=== PATIENT | female | born 1940 | race Caucasian/White ===

== ENCOUNTER 2016-10-16 01:08 | Emergency (ER) | payer OTHER ==
--- NOTE | 2016-10-16 01:59 | PROVIDER DOCUMENTATION ---
HPI-General Adult - General Source: patient - History of Present Illness -Gen Adult Nature of Presenting Problems: 76 y/o WF presents to the ED with high blood pressure. Pt states her top number was over 200 at home. Location of Pain/Injury: reports: none Pain Radiation: reports: no radiation Quality of Pain: reports: none Onset/Duration: reports: unsure Timing: reports: still present Similar Symptoms Previously?: No Recently seen or treated by another doctor?: No <Darin Lara - Last Filed: 10/16/16 01:59> - History of Present Illness -Gen Adult Nature of Presenting Problems: elevated blood pressure readings Location of Pain/Injury: reports: none Pain Radiation: reports: no radiation <Bhavesh Bray - Last Filed: 10/16/16 04:30> - General Chief Complaint: B/P Problems Stated Complaint: HIGH BLOOD PRESSURE Time Seen by Provider: 10/16/16 01:45 Allergies/Adverse Reactions: Patient Allergies Allergy/AdvReac Type Severity Reaction Status Date / Time No Known Allergies Allergy Verified 10/16/16 01:41 Home Medications: Aspirin EC 81 mg PO DAILY 10/16/16 Cyanocobalamin (Vitamin B-12) [Vitamin B12] 10/16/16 Esomeprazole [Nexium] 40 mg PO QAM 10/16/16 Lisinopril 20 mg PO QAM 10/16/16 Metoprolol [Lopressor] 50 mg PO BID 10/16/16 Grundy-3S/Dha/Epa/Fish Oil [Grundy-3 Fish Oil 1,000 mg Sfgl] 10/16/16 SIMVAstatin [Zocor] 40 mg PO QHS 10/16/16 Tramadol HCl 50 mg PO Q8H 10/16/16 Zolpidem Tartrate 10 mg PO QHS PRN 10/16/16 Review of Systems - Adult - REVIEW OF SYSTEMS - ADULT Constitutional: denies: chills, fever Eyes: reports: no symptoms reported Ears, Nose, Mouth & Throat: reports: no symptoms reported Cardiovascular: denies: chest pain, edema Respiratory: denies: cough, shortness of breath, wheezing Gastrointestinal: denies: abdominal pain, diarrhea, nausea, vomiting Genitourinary: reports: no symptoms reported Musculoskeletal: reports: no symptoms reported Integumentary: reports: no symptoms reported Neurological: denies: ataxia, dizziness/vertigo, headache/migraines, seizure, slurred speech, syncope Psychiatric: reports: no symptoms reported Endocrine: reports: no symptoms reported Hematologic/Lymphatic: reports: no symptoms reported Allergic/Immunologic: reports: no symptoms reported All Other Systems: Reviewed and Negative <Darin Lara - Last Filed: 10/16/16 01:59> Past History - Adult - PAST MEDICAL HISTORY-ADULT Review of Records: reports: Old Records Reviewed, Nursing Assessment Review, Medications Reviewed - SOCIAL HISTORY Smoking: cigarettes, less than 1 pack/day Living Situation: family <Darin Lara - Last Filed: 10/16/16 01:59> Physical Exam-General - PHYSICAL EXAM-ADULT Initial Vital Signs Reviewed: Yes - CONSTITUTIONAL General Appearance: appears well, alert, no apparent distress - EYES Eyes: PERRL/EOMI, pink conjunctivae - HEAD, EARS, NOSE, MOUTH & THROAT HENMT: moist mucous membranes, normal ENT inspection, TMs normal, pharynx normal - NECK Neck: non-tender, full range of motion, supple, normal inspection - RESPIRATORY Respiratory: lungs clear, normal breath sounds, no pleuratic chest pain, no respiratory distress, no accessory muscle use - CARDIOVASCULAR Cardiovascular: normal peripheral pulses, regular rate, rhythm - GASTROINTESTINAL (ABDOMEN) Abdominal Exam: normal bowel sounds, non tender, soft - MUSCULOSKELETAL Back Exam: normal inspection, no CVA tenderness, no vertebral tenderness Extremity: normal range of motion, non-tender, normal gait, normal inspection - SKIN Integumentary: normal color, normal turgor, warm/dry - NEUROLOGIC Neurologic: grossly normal, no motor/sensory deficits - PSYCHIATRIC Psych/Mental Status: normal mood/affect, normal thought content, normal thought process, oriented x 3 <Darin Lara - Last Filed: 10/16/16 01:59> Progress - PLAN OF CARE/RESULTS Progress/Plan/Lab Results: Laboratory Tests 10/16/16 10/16/16 10/16/16 02:00 02:00 02:00 WBC 7.01 RBC 4.37 Hgb 14.7 Hct 43.0 MCV 98.4 MCH 33.6 H MCHC 34.2 RDW Std Deviation 12.0 Plt Count 177 MPV 11.0 H Immature Gran % (Auto) 0.0 Neut % (Auto) 57.9 Lymph % (Auto) 30.2 Steele % (Auto) 8.0 Eos % (Auto) 3.3 Baso % (Auto) 0.6 Immature Gran # (Auto) 0.00 Neut # (Auto) 4.06 Lymph # (Auto) 2.12 Steele # (Auto) 0.56 Eos # (Auto) 0.23 Baso # (Auto) 0.04 Sodium 137 Potassium 4.1 Chloride 100 Carbon Dioxide 26 Anion Gap 11 BUN 12 Creatinine 0.8 Estimated GFR/1.73 m2 > 60 BUN/Creatinine Ratio 15 Glucose 116 H Calculated Osmolality 275 Calcium 9.6 Total Bilirubin 0.70 AST 17 ALT 10 Alkaline Phosphatase 132 H Creatine Kinase 40 Troponin T < 0.010 Total Protein 7.1 Albumin 4.1 Globulin 3.0 Albumin/Globulin Ratio 1.0 Laboratory Tests 10/16/16 10/16/16 10/16/16 02:00 02:00 02:00 WBC 7.01 RBC 4.37 Hgb 14.7 Hct 43.0 MCV 98.4 MCH 33.6 H MCHC 34.2 RDW Std Deviation 12.0 Plt Count 177 MPV 11.0 H Immature Gran % (Auto) 0.0 Neut % (Auto) 57.9 Lymph % (Auto) 30.2 Steele % (Auto) 8.0 Eos % (Auto) 3.3 Baso % (Auto) 0.6 Immature Gran # (Auto) 0.00 Neut # (Auto) 4.06 Lymph # (Auto) 2.12 Steele # (Auto) 0.56 Eos # (Auto) 0.23 Baso # (Auto) 0.04 Sodium 137 Potassium 4.1 Chloride 100 Carbon Dioxide 26 Anion Gap 11 BUN 12 Creatinine 0.8 Estimated GFR/1.73 m2 > 60 BUN/Creatinine Ratio 15 Glucose 116 H Calculated Osmolality 275 Calcium 9.6 Total Bilirubin 0.70 AST 17 ALT 10 Alkaline Phosphatase 132 H Creatine Kinase 40 Troponin T < 0.010 Total Protein 7.1 Albumin 4.1 Globulin 3.0 Albumin/Globulin Ratio 1.0 - EKG 1 Time of EKG reading by physician:: 04:28 EKG Read and Signed by:: Bhavesh Bray EKG Interpretation (*Must complete 3 of following elements*): Normal Rate: 52 Rhythm: sinus bradycardia Bath: normal QRS: normal - XRAY 1 XRAY Study: Chest Impression: Normal Comparison with other Films: no changes <Bhavesh Bray - Last Filed: 10/16/16 04:30> Departure <Darin Lara - Last Filed: 10/16/16 01:59> - Departure Time of Disposition Order: 04:29 Certified Medical Emergency: Emergent <Bhavesh Bray - Last Filed: 10/16/16 04:30> - Departure DIAGNOSIS: HBP (high blood pressure) Qualifiers: Hypertension type: essential hypertension Qualified Code(s): I10 - Essential ( primary) hypertension Disposition: HOME 01 Condition: Good Additional Instructions: ED Follow Up Instructions: You have been treated by a care provider in the Emergency Department. These instructions are being provided to you so you can have an understanding of how to care for yourself upon discharge. Upon discharge from the Emergency Department, you are responsible for making arrangements for follow-up care by a physician of your choice. Take all prescribed medications as directed. Return to the Emergency Department immediately for any new or worsening symptoms. You may call the Physician Referral phone number at [phone] to obtain a list of Physicians who are taking new patients. Prescriptions: Clonidine [Catapres] 0.1 mg PO HS #30 tablet Referrals: Bhavesh Romano MD [Primary Care Provider] - Attestation - Scribe Verification/Attestation Scribe:: Darin Lara Acting as Scribe for:: Bhavesh Bray Scribe documention review:: This chart was documented by a scribe and accurately reflects the service the provider performed and the decisions made by the provider. <Darin Lara - Last Filed: 10/16/16 01:59> Physician Attestation
[2016-10-16 02:17] LABS: MANUAL DIFF NEEDED? NO
[2016-10-16] MEDS ORDERED: CATAPRES PO ONE (02:25)
[2016-10-16 02:30] LABS: BASO% 0.6 % (0.0-0.8); EOS# 0.23 X1000 (0.0-0.7); EOS% 3.3 % (0.0-10.0); HEMOGLOBIN 14.7 g/dL (12.0-16.0); LYMPH# 2.12 X1000 (1.2-3.4); LYMPH% 30.2 % (20.5-51.1); MCH 33.6 PG (27-31); MCHC 34.2 g/dL (33-37); MCV 98.4 FL (81-99); MONO# 0.56 X1000 (0.11-0.59); NEUT% 57.9 % (42.2-75.2); PLT 177 X1000 (130-400); RBC 4.37 XMIL (4.2-5.4)
[2016-10-16 03:06] LABS: AGAP 11; ALBUMIN 4.1 g/dL (3.5-5.0); ALKALINE PHOSPHATASE 132 U/L (32-104); BUN 12 mg/dL (8-22); CALCIUM 9.6 mg/dL (8.8-10.2); CHLORIDE 100 mmol/L (98-107); CK PROFILE 40 U/L (24-173); COSMO 275; GOT 17 U/L (10-30); GPT 10 U/L (10-36); POTASSIUM 4.1 mmol/L (3.5-5.1); SODIUM 137 mmol/L (136-145); TCO2 26 mmol/L (25-35); TOTAL PROTEIN 7.1 g/dL (6.3-8.3)
[2016-10-16 04:33] VITALS: BP 118/69
--- NOTE | 2016-10-16 06:43 | EKG Report ---
Test Performed on : 10/16/2016 04:23:04 AM Test Reason : elevated bp Blood Pressure : / mmHG Vent. Rate : 052 BPM Atrial Rate : 052 BPM P-R Int : 150 ms QRS Dur : 080 ms QT Int : 478 ms P-R-T Axes : 039 000 038 degrees QTc Int : 444 ms Sinus bradycardia. Otherwise normal ECG When compared with ECG of 16-OCT-2016 04:22, (Unconfirmed) No significant change was found Unconfirmed Result
--- NOTE | 2016-10-16 09:50 | Diag Imaging Result Document ---
PROCEDURE NAME: CHEST-2 VIEWS - 10/16/2016 PA AND LATERAL RADIOGRAPHS OF THE CHEST: COMPARISON: 02/13/2016. FINDINGS: The lungs appear hyperinflated, stable. Mild blunting of the costophrenic angles is stable suggesting pleural scarring. The lungs are clear otherwise. Cardiac silhouette and central vasculature are unremarkable. IMPRESSION: Stable COPD changes. No definite acute pathology.
== END 2016-10-16 04:42 | disposition home or self-care (01) ==
LOC: P.ED 01:08
DX: I10 Essential (primary) hypertension (principal); F17.210 Nicotine dependence, cigarettes, uncomplicated; Z79.82 Long term (current) use of aspirin; Z79.899 Other long term (current) drug therapy; Z71.6 Tobacco abuse counseling
CPT/HCPCS: 71020; 80053; 82550; 84484; 85025; 93005; 99284

== ENCOUNTER 2019-03-09 21:14 | Inpatient (IN) ==
[2019-03-09] MEDS ORDERED: DUONEB (A & A) INH ONE (22:15)
[2019-03-09 22:40] LABS: BASO# 0.02 X1000 (0.0-0.2); BASO% 0.1 % (0.0-0.8); EOS# 0.12 X1000 (0.0-0.7); EOS% 0.6 % (0.0-10.0); HEMATOCRIT 42.8 % (37.0-47.0); HEMOGLOBIN 15.2 g/dL (12.0-16.0); IMM GRAN# 0.03 X1000 (0.0-0.04); IMM GRAN% 0.1 % (0.0-0.5); LYMPH# 0.33 X1000 (1.2-3.4); LYMPH% 1.6 % (20.5-51.1); MCH 34.1 PG (27-31); MCHC 35.5 g/dL (33-37); MONO% 2.5 % (1.7-9.3); MPV 10.7 FL (7.4-10.4); NEUT% 95.1 % (42.2-75.2); PLT 184 X1000 (130-400); RBC 4.46 XMIL (4.2-5.4); RDW 12.2 % (11.5-14.5)
[2019-03-09 22:54] LABS: AGAP 15; BUN 16 mg/dL (8-22); CALCIUM 9.1 mg/dL (8.8-10.2); CHLORIDE 95 mmol/L (98-107); COSMO 267; CREATININE 0.7 mg/dL (0.5-0.9); ESTIMATED GFR > 60; GLUCOSE 163 mg/dL (70-104); SODIUM 131 mmol/L (136-145); TCO2 21 mmol/L (25-35)
[2019-03-09] MEDS ORDERED: LASIX IV ONE (23:34)
[2019-03-09] MEDS ORDERED: LEVAQUIN 500 MG/D5W 500 MG/100 ML IVPB IV ONE (23:39)
[2019-03-10] LABS: URINE SOURCE CLEAN CATCH
[2019-03-10 00:04] LABS: BILIRUBIN URINE NEGATIVE (NEGATIVE); BLOOD URINE SMALL (NEGATIVE); COLOR YELLOW; GLUCOSE URINE TRACE mg/dL (NEGATIVE); KETONE URINE NEGATIVE (NEGATIVE); LEUKOCYTES URINE NEGATIVE (NEGATIVE); NITRITE URINE NEGATIVE (NEGATIVE); PH URINE 7.5; PROTEIN URINE 300 mg/dL (NEGATIVE); SP GRAVITY URINE 1.002; TURBIDITY URINE CLEAR (CLEAR); UROBILINOGEN URINE NORMAL (NORMAL)
[2019-03-10 00:05] LABS: UR EPITHELIAL CELLS <10 /HPF (<10); URINE BACTERIA NEGATIVE /HPF; URINE WBC <10 /HPF (<10)
--- NOTE | 2019-03-10 00:05 | PROVIDER DOCUMENTATION ---
This chart was entered by Lisa Mckeon Scribe, acting as scribe for Michelle Flynn MD. HPI-Respiratory General - General Chief Complaint: Shortness of Breath Stated Complaint: SOB Time Seen by Provider: 03/09/19 22:15 Source: patient, family, EMS Allergies/Adverse Reactions: Patient Allergies Allergy/AdvReac Type Severity Reaction Status Date / Time No Known Allergies Allergy Verified 10/16/16 01:41 Home Medications: Home Medication List Medication Instructions Recorded Confirmed Last Taken Type Aspirin EC 81 mg PO DAILY 10/16/16 10/16/16 1 Day Ago History ~10/15/16 Clonidine [Catapres] 0.1 mg PO HS #30 tablet 10/16/16 Unknown Rx Cyanocobalamin (Vitamin B-12) 10/16/16 1 Day Ago History [Vitamin B12] ~10/15/16 Esomeprazole [Nexium] 40 mg PO QAM 10/16/16 10/16/16 1 Day Ago History ~10/15/16 Lisinopril 20 mg PO QAM 10/16/16 10/16/16 1 Day Ago History ~10/15/16 Metoprolol [Lopressor] 50 mg PO BID 10/16/16 10/16/16 1 Day Ago History ~10/15/16 Haz[place]-3S/Dha/Epa/Fish Oil [[place]-3 10/16/16 1 Day Ago History Fish Oil 1,000 mg Sfgl] ~10/15/16 SIMVAstatin [Zocor] 40 mg PO QHS 10/16/16 10/16/16 1 Day Ago History ~10/15/16 Tramadol HCl 50 mg PO Q8H 10/16/16 10/16/16 1 Day Ago History ~10/15/16 Zolpidem Tartrate 10 mg PO QHS PRN 10/16/16 10/16/16 1 Day Ago History ~10/15/16 - History of Present Illness-Resp Nature of Presenting Problem: 78 yo f presents w/family at bedside w/cc sob, wheezing, runny nose and cough. pt sts she became sob this am after waking up. pt used her albuterol w/no relief. pt arrived via ems, ems sts pt was wheezing and was treated with 2 duonebs. family sts pt didn't call until later in day and they encouraged her to call ems. pt has hx of copd, htn and emphysema. denies cp and fever. pt smokes 1/2 ppd, understands she needs to quit. Review of Systems - Adult - REVIEW OF SYSTEMS - ADULT Constitutional: reports: no symptoms reported. denies: chills, fever, fatique Eyes: reports: no symptoms reported Ears, Nose, Mouth & Throat: reports: see HPI, sinus problem (runny nose). denies: epistaxis, hoarseness, throat pain Cardiovascular: reports: no symptoms reported Respiratory: reports: see HPI, cough, shortness of breath, wheezing. denies: hemoptysis, pleurisy Gastrointestinal: reports: no symptoms reported Genitourinary: reports: no symptoms reported Musculoskeletal: reports: no symptoms reported Integumentary: reports: no symptoms reported Neurological: reports: no symptoms reported Psychiatric: reports: no symptoms reported Endocrine: reports: no symptoms reported Hematologic/Lymphatic: reports: no symptoms reported Allergic/Immunologic: reports: no symptoms reported All Other Systems: Reviewed and Negative Past History - Adult - PAST MEDICAL HISTORY-ADULT Review of Records: reports: Old Records Reviewed, Nursing Assessment Review, Medications Reviewed, Social history reviewed & non-contributory. Major Childhood Illnesses: reports: denies history Cardiovascular: reports: HTN, hyperlipidemia Respiratory: reports: COPD Gastrointestinal: reports: diverticulosis, GERD Obstetrical/Gynecological: reports: denies history Genitourinary: reports: denies history Musculoskeletal: reports: denies history Neurological: reports: denies history Psychiatric: reports: depression Endocrine/Immune: reports: denies history Other Conditions: reports: denies history - PRIOR SURGERIES/PROCEDURES Surgical/Procedure History: reports: other - IMMUNIZATION STATUS Childhood Immunizations: See Nurse Assessment Flu Vaccine: See Nurse Assessment - FAMILY HISTORY Family History: reviewed, not pertinent - SOCIAL HISTORY Smoking: cigarettes, less than 1 pack/day Provider spent 3-5 mins advising pt. on dangers of tobacco.: Discussed manners to quit use, and f/u contacts for add'l counseling. Substance Use: none/never Physical Exam-General - PHYSICAL EXAM-ADULT Initial Vital Signs Reviewed: Yes - CONSTITUTIONAL General Appearance: appears well, alert, no apparent distress - EYES Eyes: PERRL/EOMI, pink conjunctivae - HEAD, EARS, NOSE, MOUTH & THROAT HENMT: normocephalic/atraumatic, moist mucous membranes, normal ENT inspection, TMs normal, pharynx normal. negative: angioedema, frontal tenderness, maxillary tenderness - NECK Neck: non-tender, full range of motion, supple, normal inspection - RESPIRATORY Respiratory: chest non-tender, normal breath sounds, no pleuratic chest pain, no respiratory distress, no accessory muscle use, wheezing (minimal bilat wheezing). negative: lungs clear, respiratory distress, decreased breath sounds, crackles - CARDIOVASCULAR Cardiovascular: normal peripheral pulses, regular rate, rhythm - GASTROINTESTINAL (ABDOMEN) Abdominal Exam: normal bowel sounds, non tender, soft - LYMPHATIC Lymphatic: no adenopathy - MUSCULOSKELETAL Back Exam: normal inspection, no CVA tenderness, no vertebral tenderness Extremity: normal range of motion, non-tender, normal inspection, no pedal edema , no calf tenderness, normal capillary refill. negative: pedal edema, slow capillary refill, swelling Peripheral Pulses: radial (R): 2+, radial (L): 2+ - SKIN Integumentary: normal color, normal turgor, warm/dry - NEUROLOGIC Neurologic: rn surgery II-XII nml as tested, grossly normal, no motor/sensory deficits - PSYCHIATRIC Psych/Mental Status: normal mood/affect, normal thought content, normal thought process, oriented x 3 Progress - PLAN OF CARE/RESULTS Progress/Plan/Lab Results: Vital Signs - 8 hr 03/09/19 21:25 03/09/19 21:37 03/09/19 22:01 Temperature 98.1 F Pulse Rate 101 H 98 H 96 H Respiratory Rate 37 H 33 H 24 Blood Pressure 197/124 190/115 148/82 O2 Sat by Pulse Oximetry 100 96 95 03/09/19 22:31 03/09/19 22:59 03/09/19 23:01 Temperature Pulse Rate 81 86 78 Respiratory Rate 24 24 26 H Blood Pressure 123/74 116/72 O2 Sat by Pulse Oximetry 96 93 L 96 Laboratory Results - last 24 hr 03/09/19 03/09/19 03/09/19 21:53 21:53 21:53 WBC 20.20 H RBC 4.46 Hgb 15.2 Hct 42.8 MCV 96.0 MCH 34.1 H MCHC 35.5 RDW Std Deviation 12.2 Plt Count 184 MPV 10.7 H Immature Gran % (Auto) 0.1 Neut % (Auto) 95.1 H Lymph % (Auto) 1.6 L Caroline % (Auto) 2.5 Eos % (Auto) 0.6 Baso % (Auto) 0.1 Immature Gran # (Auto) 0.03 Neut # (Auto) 19.20 H Lymph # (Auto) 0.33 L Caroline # (Auto) 0.50 Eos # (Auto) 0.12 Baso # (Auto) 0.02 Sodium 131 L Potassium 4.0 Chloride 95 L Carbon Dioxide 21 L Anion Gap 15 BUN 16 Creatinine 0.7 Estimated GFR/1.73 m2 > 60 BUN/Creatinine Ratio 23 Glucose 163 H Calculated Osmolality 267 Calcium 9.1 Troponin T [id number] Pept 1064 H 03/09/19 21:53 WBC RBC Hgb Hct MCV MCH MCHC RDW Std Deviation Plt Count MPV Immature Gran % (Auto) Neut % (Auto) Lymph % (Auto) Caroline % (Auto) Eos % (Auto) Baso % (Auto) Immature Gran # (Auto) Neut # (Auto) Lymph # (Auto) Caroline # (Auto) Eos # (Auto) Baso # (Auto) Sodium Potassium Chloride Carbon Dioxide Anion Gap BUN Creatinine Estimated GFR/1.73 m2 BUN/Creatinine Ratio Glucose Calculated Osmolality Calcium Troponin T 0.073 Kly-J-Eucobqauyjo Pept Orders Category Date Time Status IV Insertion ORDERED Care 03/09/19 22:15 Completed cxr [CHEST-1 VIEW] [RAD] Stat Exams 03/09/19 22:15 Taken BASIC METABOLIC PANEL [CHEM] Stat Lab 03/09/19 21:53 Completed BLOOD CULTURE [BLDCUL] Stat Lab 03/09/19 21:53 Ordered CBC WITH DIFF [HEME] Stat Lab 03/09/19 21:53 Completed LACTATE, PLASMA [CHEM] Stat Lab 03/09/19 23:17 Uncollected PRO B-NATRIURETIC PEPTIDE Stat Lab 03/09/19 21:53 Completed TROPONIN T Stat Lab 03/09/19 21:53 Completed UA [URINALYSIS W/POSS RFLX CULT] [URINALYSIS] Stat Lab 03/09/19 23:39 Uncollected Albuterol 2.5MG/Ipratrop 0.5MG [Duoneb (A & A)] Med 03/09/19 22:15 Discontinued 3 ml INH NOW ONE Furosemide [Lasix] Med 03/09/19 23:34 Discontinued 20 mg IV NOW ONE Levofloxacin 500 mg/D5w [Levaquin 500 mg/D5w] Med 03/09/19 23:39 Active 500 mg in 100 ml IV NOW Aerosol Treatments Routine Oth 03/09/19 22:16 Completed Aerosol Treatments Stat Oth 03/09/19 22:16 Completed EKG [EKG] Stat Ther 03/09/19 22:15 Ordered dyspnea will further evaluate for causes including but not limited to copd exacerbation, chf, acs, pna, bronchits Result Diagrams: 03/09/19 21:53 03/09/19 21:53 - REASSESSMENT Reassessment #1 Status: improving (feeling better, wheezes and dyspnea resolved, marked leukocytosis with elevated bnp, pulmonary edema but no discrete infiltrate, treated with lasix and will treat with levaquin as with leukocytosis concerning for infectious process and will admit. Discussed case wtih Dr. Davidson, Hospitalist, who will see and admit pt.) - XRAY 1 XRAY Study: Chest Impression: Abnormal (moderate pulmonary edema, no discrete infiltrate, no ptx) Departure - Departure Date of Disposition Decision: 03/10/19 Time of Disposition Decision: 00:04 DIAGNOSIS: CHF (congestive heart failure) Qualifiers: Heart failure type: unspecified Heart failure chronicity: unspecified Qualified Code(s): I50.9 - Heart failure, unspecified Leukocytosis Qualifiers: Leukocytosis type: unspecified Qualified Code(s): D72.829 - Elevated white blood cell count, unspecified Disposition: HOME 01 Certified Medical Emergency: Emergent Condition: Good Referrals and Follow-Ups: Bhavesh Romano MD [Primary Care Provider] - - Critical Care Note This patient required my direct & personal management of CC.: No Attestation - Physician/ TRUDI Attestation Patient care was provided by Advanced Practice Provider:: No The physician spent face to face time with patient:: Yes Advanced Practice Provider documentation review:: Supervising physician onsite and consulted in the evaluation and care of this patient. The physician did have a face to face encounter with the patient. This chart was documented by the indicated scribe, (Lisa Mckeon Scribe) and accurately reflects the services I performed and decisions made by me, Michelle Flynn MD, as attested by the provider's signature.
[2019-03-10] MEDS ORDERED: TYLENOL PO PRN (01:12)
[2019-03-10] MEDS ORDERED: ZOFRAN IV PRN (01:12)
[2019-03-10] MEDS ORDERED: SOLU-MEDROL IV ONE (01:20)
[2019-03-10] MEDS: LOVENOX SUBQ SCH (01:34)
[2019-03-10] MEDS: ULTRAM PO SCH ×2 (01:34→13:29)
[2019-03-10] MEDS: AMBIEN PO PRN ×2 (01:38→22:23)
[2019-03-10] MEDS ORDERED: AMBIEN ONE (01:38)
[2019-03-10] MEDS: DUONEB (A & A) INH SCH ×6 (03:08→19:30)
--- NOTE | 2019-03-10 06:25 | Diag Imaging Result Doc PS360 ---
CHEST-1 VIEW - 03/09/2019 INDICATION: dyspnea COMPARISON: 02/25/2019 FINDINGS: Stable hyperexpanded lungs compatible with COPD. No infiltrates or edema. Heart size remains top normal. IMPRESSION: COPD. Electronically signed by Elijah Hernandez 03/10/2019 6:22 AM
[2019-03-10] MEDS: PRILOSEC PO SCH (06:36)
--- NOTE | 2019-03-10 06:36 | HISTORY AND PHYSICAL ---
CHIEF COMPLAINT: Shortness of breath. HISTORY OF PRESENT ILLNESS: This is a 78-year-old female who was having a runny nose and cough for the last couple of days had increased shortness of breath. She has a history of emphysema. She smokes between 5-12 cigarettes per day. She has been told before that she needs to quit. She states that she was no longer going to smoke after this episode. She sees Dr. Romano outpatient. She also has a history of hypertension, hyperlipidemia and COPD. Laboratory data was obtained that showed an elevated white blood cell count. She was started on antibiotics in the emergency room. She will be admitted for further evaluation and treatment. PAST MEDICAL HISTORY: See HPI. PREVIOUS SURGICAL HISTORY: Sinus surgery and bilateral tubal ligation. SOCIAL HISTORY: Lives alone. No alcohol or illicit drugs. Has been smoking from 5 to 12 cigarettes per day. She was a 1/2 pack per smoker for many years. FAMILY HISTORY: Father had kidney cancer. Mother had diabetes mellitus. Both are . ALLERGIES: No known drug allergies. HOME MEDICATIONS: 1. Nexium 40 mg p.o. daily. 2. Aspirin 81 mg p.o. daily. 3. Tramadol 50 mg p.o. daily. 4. Lisinopril 20 mg p.o. daily. 5. [place]-3 fish oil 1000 mg p.o. daily. 6. Pravastatin 40 mg p.o. daily. 7. Carvedilol 12.5 mg p.o. b.i.d. 8. Ambien 10 mg p.o. at bedtime p.r.n. 9. Albuterol inhalation q.4 p.r.n. 10.Cymbalta 30 mg p.o. daily. REVIEW OF SYSTEMS: Fourteen point review of systems conducted with the patient. Pertinent positives as listed above in the HPI. All other systems reviewed and found to be negative. PHYSICAL EXAMINATION: VITAL SIGNS: Temperature 98.1, pulse78, respirations 26, blood pressure 116/72, oxygen saturation 96% on 3 L nasal cannula. GENERAL: A pleasant 78-year-old female alert and oriented x3. She is in moderate respiratory distress in the emergency room. Answers all questions appropriately. Family at bedside. HEENT: Head is atraumatic, normocephalic. Pupils equal, round and react to light. Extraocular eye movements intact. Sclerae are nonicteric. Conjunctivae are pink. Oral mucosa is moist. Patient is hard of hearing. NECK: Trachea is midline. No cervical lymphadenopathy. CARDIAC: S1, S2 appreciated. No murmurs, gallops or rubs. LUNGS: Expiratory wheezing. Prolonged expiratory phase. Mild crepitations noted throughout the air morrison. No rhonchi. Symmetric rise and fall with respirations. ABDOMEN: Soft, nondistended, nontender. Bowel sounds present in all 4 quadrants. Normoactive. No pulsatile masses. No organomegaly. EXTREMITIES: No cyanosis, clubbing or edema. Calves are nontender. GENITOURINARY: No bladder distention. The patient voids. Otherwise deferred. NEUROLOGICAL: Alert and oriented x3. The patient is hard of hearing, otherwise cranial nerves 2- 12 appear to be grossly intact. DIAGNOSTIC DATA: A chest x-ray shows mildly increased pulmonary vascular congestion. Pulmonary arteriogram ruled out pulmonary embolism. LABORATORY DATA: WBC 20.20, hemoglobin 15.2, hematocrit 42.8, platelet count 187,000. D-dimer 7.30. Sodium 131, potassium 4, chloride 95, carbon dioxide 21, BUN 16, creatinine 0.7, glucose 163. Urine unremarkable. ASSESSMENT AND PLAN: 1. Chronic obstructive pulmonary disease with exacerbation. This is likely related to an upper respiratory infection. Will continue Levaquin that was started in the emergency room. Blood cultures are pending. The patient had an elevated D-dimer, but CT angiogram ruled out pulmonary embolism. 2. Hypertension. Continue home medications. 3. Hyperlipidemia. Continue statin. 4. Hyperglycemia. Patient does not carry a diagnosis of diabetes mellitus. Check hemoglobin A1c. 5. Elevated D-dimer. Pulmonary embolism was ruled out. Will check a bilateral lower extremity ultrasound to rule out deep vein thrombosis. 6. Tobacco abuse. Smoking cessation was gone over with the patient. She states that she is no longer going to smoke. Further recommendations as per the patient's clinical course. Dictated by CHRISTIAN Diaz for Jasper Davidson MD cc: CHRISTIAN Diaz MD Michael C. Donham, MD
--- NOTE | 2019-03-10 07:06 | Diag Imaging Result Doc PS360 ---
EXAM: CT ANGIOGRM PULMONARY ARTERIES 03/10/2019 HISTORY: D-DIMER TECHNIQUE: This exam was performed using automated exposure control, adjustment of mA or kV according to patient size, and/or use of iterative reconstruction technique. COMMENT: 3-D MIPS were performed. The current examination is compared with the previous study of 05/22/2017. There are no filling defects in the pulmonary arteries. The thoracic aorta is not distended and there is no evidence of dissection. There are coronary calcifications. Some calcified and noncalcified plaque is present in the descending aorta. There is a small hiatal hernia. There is no evidence of significant adenopathy. No abnormal fluid collections are present. The regional skeleton is stable in appearance. There is some pleural fibrosis in the apices. There is mild peribronchial thickening. This is not changed appreciably since the previous study. There are some calcified granulomata. There are some linear fibrotic scars in the left lower lobe. Overall, there has been no significant change since the previous study. IMPRESSION: Stable CT of the chest. No evidence of pulmonary emboli. Electronically signed by Derrick Sheets 03/10/2019 7:04 AM
--- NOTE | 2019-03-10 07:39 | EKG Report ---
Test Performed on : 03/10/2019 05:02:11 AM Test Reason : dyspnea Blood Pressure : / mmHG Vent. Rate : 077 BPM Atrial Rate : 077 BPM P-R Int : 148 ms QRS Dur : 080 ms QT Int : 430 ms P-R-T Axes : 076 -41 039 degrees QTc Int : 486 ms Normal sinus rhythm. Left axis deviation Abnormal ECG When compared with ECG of 16-OCT-2016 04:23, Vent. rate has increased BY 25 BPM Unconfirmed Result
[2019-03-10] MEDS: FISH OIL CONCENTRATE PO SCH (09:47)
[2019-03-10] MEDS: CYMBALTA PO SCH (09:47)
[2019-03-10] MEDS: PRINIVIL PO SCH (09:47)
[2019-03-10] MEDS: COREG PO SCH ×2 (09:47→20:22)
[2019-03-10] MEDS: ASPIRIN EC PO SCH (09:47)
[2019-03-10] MEDS: NICODERM PATCH TD SCH (09:47)
[2019-03-10] MEDS: SOLU-MEDROL IV SCH ×2 (11:25→22:23)
[2019-03-10] MEDS: SYMBICORT 80/4.5 MICROGM INHALER INH SCH ×2 (11:29→19:30)
--- NOTE | 2019-03-10 11:30 | EKG Report ---
Test Performed on : 03/10/2019 08:58:14 AM Test Reason : ED. No order in [place] Blood Pressure : / mmHG Vent. Rate : 077 BPM Atrial Rate : 077 BPM P-R Int : 142 ms QRS Dur : 080 ms QT Int : 424 ms P-R-T Axes : 083 -23 040 degrees QTc Int : 479 ms Normal sinus rhythm. Normal ECG When compared with ECG of 10-MAR-2019 05:02, (Unconfirmed) No significant change was found Unconfirmed Result
[2019-03-10] MEDS: ZOCOR PO SCH (20:22)
[2019-03-10] MEDS: LEVAQUIN 500 MG/D5W 500 MG/100 ML IVPB IV SCH (22:23)
[2019-03-11] MEDS: DUONEB (A & A) INH SCH ×7 (00:48→23:30)
[2019-03-11] MEDS ORDERED: VANCOMYCIN IV PER PHARMACY MISC SCH (03:00)
[2019-03-11] MEDS ORDERED: VANCOMYCIN 1,500 MG in NS 250 ML IV ONE (04:00)
[2019-03-11] MEDS: PRILOSEC PO SCH ×2 (05:11→06:16)
[2019-03-11 05:47] LABS: HEMATOCRIT 37.7 % (37.0-47.0); HEMOGLOBIN 13.1 g/dL (12.0-16.0); IMM GRAN# 0.06 X1000 (0.0-0.04); IMM GRAN% 0.3 % (0.0-0.5); LYMPH# 0.64 X1000 (1.2-3.4); LYMPH% 3.6 % (20.5-51.1); MCH 33.4 PG (27-31); MCHC 34.7 g/dL (33-37); MCV 96.2 FL (81-99); MONO# 0.45 X1000 (0.11-0.59); MONO% 2.5 % (1.7-9.3); MPV 10.7 FL (7.4-10.4); NEUT# 16.73 X1000 (1.4-6.5); NEUT% 93.6 % (42.2-75.2); PLT 163 X1000 (130-400); RBC 3.92 XMIL (4.2-5.4); RDW 12.3 % (11.5-14.5); WBC 17.88 X1000 (4.8-10.8)
[2019-03-11 06:13] LABS: CALCIUM 9.1 mg/dL (8.8-10.2); POTASSIUM 3.8 mmol/L (3.5-5.1)
[2019-03-11] MEDS: SYMBICORT 80/4.5 MICROGM INHALER INH SCH ×2 (07:50→19:40)
[2019-03-11] MEDS: NICODERM PATCH TD SCH (08:25)
[2019-03-11] MEDS: FISH OIL CONCENTRATE PO SCH (08:27)
[2019-03-11] MEDS: LOVENOX SUBQ SCH (08:27)
[2019-03-11] MEDS: CYMBALTA PO SCH (08:27)
[2019-03-11] MEDS: ULTRAM PO SCH ×2 (08:28→21:22)
[2019-03-11] MEDS: ASPIRIN EC PO SCH (08:29)
[2019-03-11] MEDS: COREG PO SCH ×2 (08:29→21:20)
[2019-03-11] MEDS: PRINIVIL PO SCH (08:30)
--- NOTE | 2019-03-11 11:33 | PROGRESS NOTE ---
DATE: 03/11/2019 SUBJECTIVE: As per the patient, she is feeling better and she is breathing better. Her BUN and creatinine increased compared with yesterday, and this is probably related to the CT angiogram that she received with contrast, I will give her some IV fluids. I will hold for now the lisinopril, and I will monitor this patient closely. She is tolerating p.o. OBJECTIVE: Vital Signs: Temperature 98.3 degrees, pulse 85, respiratory rate 16, blood pressure 121/76, and oxygen saturation 98 on 2 L of nasal cannula. HEENT: Head normocephalic. No trauma. PERRLA. Neck: Supple. No JVD. No masses. Central trachea. Chest: Decreased breath sounds globally with prolonged expiratory phase and expiratory wheezing, scattered. Abdomen: Soft, nontender, and nondistended. No hepatosplenomegaly. Extremities: No edema. No clubbing. No cyanosis. Neurological: The patient is alert. She is oriented x3. No focal neurological deficits. LABORATORY: WBC 17.8, hemoglobin 13.1, hematocrit 37.7, and platelets 163,000. Sodium 129, potassium 3.8, chloride 92, bicarbonate 23, BUN 30, creatinine 1, glucose 131, and calcium 9.1. ASSESSMENT AND PLAN: 1. COPD exacerbation. She has been a heavy smoker, and she is still smoking. We had a large conversation about smoking cessation. We will continue with breathing treatment. Her wheezing is better so I will decrease the amount of the steroids from twice a day to once a day. Continue with antibiotics as well. She may have an upper respiratory infection. CT angiogram did not show any infiltrates or clots. 2. Acute kidney injury, probably related to the CT angiogram and the contrast. I will give her some IV fluids, and I will stop for now her lisinopril. Blood pressure has been stable. 3. Hypertension stable. Holding the lisinopril for now. 4. Hyperlipidemia continue with statins. 5. Hyperglycemia. This patient does not have a history of diabetes, but the blood glucose has been slightly elevated. I will ask for a hemoglobin A1c to rule out diabetes. I do believe this high blood sugar is related to steroids. 6. Hyponatremia. We will monitor for now. It looks like she has been hyponatremic before. I will give her some IV fluids. 7. Elevated D-dimer. CT angiogram has been negative for pulmonary embolism. Pending lower extremity ultrasound to rule out DVT, but she does not have any symptoms at this moment. 8. Tobacco abuse. This patient has been highly advised against tobacco use. I will continue with daily cessation education. cc: Kvng Jackson MD
[2019-03-11] MEDS: NS 1,000 ML IV SCH ×2 (11:49→23:03)
--- NOTE | 2019-03-11 20:41 | Extremity Venous Study ---
PROCEDURE NAME: Venous U/S Bilateral Legs - 03/10/2019 REQUESTING PHYSICIAN: Dr. Davidson. SALESPERSON MEATS: René. INDICATIONS: 1. Shortness of breath. 2. D-dimer. 3. CT chest. 4. Elevated D-dimer. EQUIPMENT: whoactually Vivid E9 ultrasound system and a 9 L-D transducer. FINDINGS: Images of bilateral lower extremity venous systems were obtained in both sagittal and transverse planes. Doppler was used to evaluate veins for spontaneity, phasicity, respiratory excursion and digital augmentation. RESULTS: Normal venous compression, normal venous flow, no obvious superficial or deep venous thrombosis noted. INTERPRETATION: Essentially normal bilateral lower extremity venous study. cc: MD Nick Xie CRNP
[2019-03-11] MEDS: ZOCOR PO SCH (21:20)
[2019-03-11] MEDS: LEVAQUIN 500 MG/D5W 500 MG/100 ML IVPB IV SCH (21:21)
[2019-03-11] MEDS: AMBIEN PO PRN (23:03)
[2019-03-12] MEDS: LEVAQUIN 500 MG/D5W 500 MG/100 ML IVPB IV SCH ×2 (01:40→22:28)
[2019-03-12] MEDS: DUONEB (A & A) INH SCH ×6 (03:17→23:13)
[2019-03-12 05:48] LABS: EOS# 0.17 X1000 (0.0-0.7); EOS% 1.3 % (0.0-10.0); HEMOGLOBIN 11.7 g/dL (12.0-16.0); IMM GRAN# 0.03 X1000 (0.0-0.04); IMM GRAN% 0.2 % (0.0-0.5); LYMPH# 1.12 X1000 (1.2-3.4); LYMPH% 8.8 % (20.5-51.1); MCH 33.5 PG (27-31); MCHC 34.4 g/dL (33-37); MCV 97.4 FL (81-99); MONO# 0.92 X1000 (0.11-0.59); MONO% 7.3 % (1.7-9.3); MPV 10.6 FL (7.4-10.4); NEUT# 10.44 X1000 (1.4-6.5); NEUT% 82.4 % (42.2-75.2); PLT 166 X1000 (130-400); RBC 3.49 XMIL (4.2-5.4); RDW 12.5 % (11.5-14.5); WBC 12.68 X1000 (4.8-10.8)
[2019-03-12 06:14] LABS: AGAP 13; BUN 24 mg/dL (8-22); CALCIUM 8.5 mg/dL (8.8-10.2); CHLORIDE 98 mmol/L (98-107); COSMO 270; CREATININE 0.8 mg/dL (0.5-0.9); ESTIMATED GFR > 60; GLUCOSE 96 mg/dL (70-104); POTASSIUM 3.9 mmol/L (3.5-5.1); SODIUM 133 mmol/L (136-145); TCO2 22 mmol/L (25-35)
[2019-03-12] MEDS: PRILOSEC PO SCH (06:21)
--- NOTE | 2019-03-12 07:39 | Diag Imaging Result Doc PS360 ---
CHEST-PORTABLE - 03/12/2019 INDICATION: dyspnea COMPARISON: 03/09/2019 FINDINGS: The lungs are clear. Heart size is normal. No pneumothorax or pleural effusion. IMPRESSION: Negative exam. Electronically signed by Elijah Hernandez 03/12/2019 7:36 AM
[2019-03-12] MEDS: SYMBICORT 80/4.5 MICROGM INHALER INH SCH ×2 (07:52→23:13)
[2019-03-12] MEDS: NICODERM PATCH TD SCH (08:33)
[2019-03-12] MEDS: SOLU-MEDROL IV SCH (08:33)
[2019-03-12] MEDS: COREG PO SCH ×2 (08:33→22:28)
[2019-03-12] MEDS: LOVENOX SUBQ SCH (08:33)
[2019-03-12] MEDS: FISH OIL CONCENTRATE PO SCH (08:33)
[2019-03-12] MEDS: CYMBALTA PO SCH (08:33)
[2019-03-12] MEDS: ASPIRIN EC PO SCH (08:33)
[2019-03-12] MEDS: ULTRAM PO SCH ×2 (08:34→22:27)
--- NOTE | 2019-03-12 11:05 | PROGRESS NOTE ---
DATE: 03/12/2019 SUBJECTIVE: This patient is feeling better, the kidney function is recovering. She is still having wheezing and having some shortness of breath. WBC trending down. Will continue with the same management. She is tolerating p.o. really well, so I will stop the IV fluids today, but I will continue holding the lisinopril. OBJECTIVE: Vital Signs: Temperature 98.2 degrees, pulse 78, respiratory rate 18, blood pressure 148/87, oxygen saturation 95% on 2 L of nasal cannula. HEENT: Head normocephalic. No trauma. PERRLA. Neck: Supple. No JVD. No masses. Central trachea. Chest: Decreased breath sounds globally with prolonged expiratory phase and expiratory wheezing, but scattered. Abdomen: Soft, nontender, nondistended. No hepatosplenomegaly. Extremities: No edema. No clubbing. No cyanosis. Neurological examination: The patient is alert. She is oriented x3. No focal neurological deficits. LABORATORY: WBC 12.6, hemoglobin 11.7, hematocrit 34.0, platelets 166,000. Sodium 133, potassium 3.9, chloride 98, bicarbonate 22, BUN 24, creatinine 0.8, glucose 96, calcium 9.1. ASSESSMENT AND PLAN: 1. Chronic obstructive pulmonary disease exacerbation. She has been a heavy smoker, she is still smoking actually. We had a large conversation about smoking cessation. Will continue with breathing treatment. Will continue with the same dose of steroids, likely she needs to be recharged p.o. steroids as well. Will continue with antibiotics. It looks like she has an upper respiratory infection. CT angiogram did not show any infiltrates or clots. 2. Likely bronchitis. Continue with antibiotics and breathing treatment. 3. Acute kidney injury, probably related to the CT angiogram and the contrast. I will stop the IV fluids since the kidney function is better, she is making more continue. I will continue holding the lisinopril for now. Blood pressure is stable. 4. Hypertension, stable. 5. Hyperlipidemia. Continue with statins. 6. Hyperglycemia. Her hemoglobin A1c is around 5%, likely the mild elevation of the glucose is related to steroids. 7. Hyponatremia, better compared with yesterday. Continue with the same management. 8. Elevated D-dimer. CT angiogram has been negative for pulmonary embolism, and she does have a bilateral lower extremity venous study, which is normal. 9. Tobacco abuse. This patient has been highly advised against tobacco use. I will continue with daily cessation education. Overall, this patient is doing much better. I will ask for a home O2 evaluation to see if this patient qualifies for home oxygen. If tomorrow she is doing well, she will be discharged home. cc: Kvng Jackson MD MTDD
[2019-03-12] MEDS ORDERED: VANCOMYCIN 1,200 MG in NS 250 ML IV SCH (16:00)
[2019-03-12] MEDS ORDERED: MIRALAX PO ONE (17:55)
[2019-03-12] MEDS: ZOCOR PO SCH (22:28)
[2019-03-12] MEDS: AMBIEN PO PRN (22:32)
[2019-03-13] MEDS: DUONEB (A & A) INH SCH ×3 (03:02→12:00)
[2019-03-13] MEDS: PRILOSEC PO SCH (06:45)
[2019-03-13 07:43] LABS: EOS# 0.06 X1000 (0.0-0.7); EOS% 0.6 % (0.0-10.0); HEMATOCRIT 36.1 % (37.0-47.0); HEMOGLOBIN 12.5 g/dL (12.0-16.0); IMM GRAN# 0.02 X1000 (0.0-0.04); IMM GRAN% 0.2 % (0.0-0.5); LYMPH# 1.26 X1000 (1.2-3.4); LYMPH% 13.6 % (20.5-51.1); MCH 33.5 PG (27-31); MCHC 34.6 g/dL (33-37); MCV 96.8 FL (81-99); MONO# 0.83 X1000 (0.11-0.59); MONO% 8.9 % (1.7-9.3); MPV 10.6 FL (7.4-10.4); NEUT# 7.11 X1000 (1.4-6.5); NEUT% 76.7 % (42.2-75.2); PLT 165 X1000 (130-400); RBC 3.73 XMIL (4.2-5.4); RDW 12.4 % (11.5-14.5); WBC 9.28 X1000 (4.8-10.8)
[2019-03-13] MEDS: SYMBICORT 80/4.5 MICROGM INHALER INH SCH (07:47)
[2019-03-13 08:02] LABS: AGAP 10; BUN 21 mg/dL (8-22); CALCIUM 8.6 mg/dL (8.8-10.2); CHLORIDE 96 mmol/L (98-107); COSMO 265; CREATININE 0.8 mg/dL (0.5-0.9); ESTIMATED GFR > 60; GLUCOSE 95 mg/dL (70-104); POTASSIUM 3.8 mmol/L (3.5-5.1); SODIUM 131 mmol/L (136-145); TCO2 25 mmol/L (25-35)
[2019-03-13 08:21] VITALS: BP 182/96
[2019-03-13] MEDS: SOLU-MEDROL IV SCH (09:46)
[2019-03-13] MEDS: ULTRAM PO SCH (09:47)
[2019-03-13] MEDS: CYMBALTA PO SCH (09:47)
[2019-03-13] MEDS: FISH OIL CONCENTRATE PO SCH (09:48)
[2019-03-13] MEDS: COREG PO SCH (09:48)
[2019-03-13] MEDS: ASPIRIN EC PO SCH (09:48)
[2019-03-13] MEDS: LOVENOX SUBQ SCH (09:48)
[2019-03-13] MEDS: NICODERM PATCH TD SCH (09:49)
--- NOTE | 2019-03-13 11:30 | DISCHARGE SUMMARY ---
ADMISSION DATE: 03/10/2019 DISCHARGE DATE: 03/13/2019 ADMITTING DIAGNOSES: 1. Chronic obstructive pulmonary disease exacerbation. 2. Hypertension. 3. Hyperlipidemia. 4. Hyperglycemia. 5. Elevated D-dimer. 6. Nicotine dependence. DISCHARGE DIAGNOSES: 1. Chronic obstructive pulmonary disease exacerbation. 2. Bronchitis. 3. Acute kidney injury, resolved. 4. Hypertension. 5. Hyperlipidemia. 6. Mild hyponatremia. 7. Nicotine dependence. DIAGNOSTIC PROCEDURES: Chest x-ray on 03/09/2019 shows hyperexpanded lungs, no acute process. CTA of the chest on 03/10/2019 with no PE, pleural fibrosis in the apices, mild peribronchial thickening. Extremity venous study on 03/10/2019 essentially normal bilateral lower extremity venous study. EKG on 03/10/2019 is sinus rhythm without acute ST or T abnormalities. Chest x-ray on 03/12/2019 is a negative exam. HOSPITAL COURSE: Ms. Rhoades is a 78-year-old female who came in with 3 to 4 days of increased shortness of breath, runny nose and cough. She also reports some increased wheezing and came in to the hospital for evaluation. Chest x-ray did not show anything acute. She had a mildly elevated white count, and so she was admitted for COPD exacerbation, started on standard treatment. We counseled her extensively on nicotine cessation and gave her a nicotine patch. She improved significantly. D-dimer elevation also prompted an extremity venous study which was negative. Over the next 2 days, she improved and is now stable for discharge. There was some mild renal insufficiency noted on day 3, and it was felt this was due to CT dye contrast and lisinopril use. The lisinopril was stopped for a short period, and IV fluids were given which improved her creatinine. This morning, she feels much better. She is now stable for discharge home. DISCHARGE MEDICATIONS: Nexium 40 mg p.o. a.m., aspirin 81 mg daily, tramadol 50 mg p.o. q.12 hours as needed, lisinopril 20 mg p.o. a.m., fish oil 1 daily, simvastatin 40 mg daily, Coreg 12.5 mg p.o. b.i.d., Ambien 10 mg p.o. at bedtime as needed, albuterol 8.5 g inhaled q.4 hours, Atrovent HFA 2 puffs inhaled 4 times a day, Medrol Dosepak as directed, Levaquin 500 mg p.o. daily for 3 days. DISCHARGE DIET: Heart healthy. DISCHARGE VITAL SIGNS: Blood pressure is 150/78, heart rate 71, respiratory rate 17, O2 saturation is 98% on room air, temperature is 98 degrees Fahrenheit. DISCHARGE ACTIVITY: Resume activity as tolerated. DISPOSITION AND OTHER DISCHARGE INSTRUCTIONS: The patient is discharged home with [facility] home care. She is to follow up with Dr. Robert of Pulmonary. We have done extensive nicotine cessation education and directed her toward nicotine patches over the counter if needed. She is to continue all other medications and return to the ER for worsening complaints or concerns. Discharge time is greater than 35 minutes. Dictated by CHRISTIAN Sifuentes for Kvng Jackson MD cc: CHRISTIAN Sifuentes MD Mamoun I. Najjar, MD Michael C. Donham, MD
== END 2019-03-13 12:42 | disposition home health service (06) | DRG 191 ==
LOC: ED 21:14 → SUATTDRO 03-10 01:48 → EDIPHOLD 03-10 01:48 → 3S 03-10 10:19 → 3N 03-12 12:11
PROVIDERS: ATTEND Internal Medicine
CPT/HCPCS: 71010; 71045; 71275; 80048; 81001; 83036; 83605; 83735; 83880; 84484; 85025; 85379; 87040; 93005; 93970; 94640; 94761; 94799; 96365; 96372; 96375; 97116; 97161; 99285; A9270; J1650; J1940; J1956; J2920; J2930; J3370; J7030; J7040; Q9967

== ENCOUNTER 2019-11-03 00:57 | Inpatient (IN) ==
[2019-11-03 01:53] LABS: URINE SOURCE CATH
[2019-11-03 01:58] LABS: UR EPITHELIAL CELLS <10 /HPF (<10); URINE BACTERIA NEGATIVE /HPF; URINE RBC 20-40 /HPF (<10); URINE WBC <10 /HPF (<10)
--- NOTE | 2019-11-03 02:00 | PROVIDER DOCUMENTATION ---
This chart was entered by Lisa Mckeon Scribe, acting as scribe for Christina Mclaughlin MD. HPI-Musculoskeletal Pain/Inj - GENERAL Stated Complaint: FALL RIGHT HIP AND WRIST Time Seen by Provider: 11/03/19 01:00 Source: patient - HX OF PRESENT ILLNESS-MUSKULOSKELTAL Nature of Presenting Problem: PT IS AN 79YOWF C/O RT HIP AND RT ARM AND WRIST PAIN RELATED TO FALL SOMETIME THURSDAY NIGHT. PT STS SHE WAS GOING TO TURN OF TV AND FELL, LAID IN FLOOR AND URINATED SELF. PT LIVES ALONE. PT IS ORIENTED TO SELF, PLACE AND KNOWS SHE FELL DAY AFTER YEST. SMELLS OF URINE IN ROOM. 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 PT PCP IS DR. HAYNES Severity in ED: moderate Onset/Duration: 3 days ago Timing: still present Modifying Factors: improves with: nothing Locality of Occurance: Home - FALL INJURY Location of Pain/Injury: reports: upper extremity (RT WRIST AND ARM), lower extremity (RT HIP) Pain Radiation: reports: no radiation Reason for Fall: reports: lost balance Symptoms prior to fall:: reports: none Loss of Consciousness: no loss of consciousness Injury Associated Symptoms: reports: arm pain (RT) - HIP/PELVIS PAIN/INJURY Hip Pain Location: reports: hip (R) Pain Radiation: reports: no radiation Context / Method of Injury: reports: fall Associated Symptoms: reports: loss of bladder control - LOWER EXTREMITY PAIN/INJURY Lower Extremities Pain: hip: right Context / Method of Injury: reports: fell Associated Symptoms: reports: loss of bladder control - UPPER EXTREMITY PAIN/INJURY Extremities Pain Location: arm: right, wrist: right Context / Method of Injury: reports: fell Associated Symptoms: reports: denies symptoms Review of Systems - Adult - REVIEW OF SYSTEMS - ADULT Constitutional: reports: no symptoms reported. denies: fever, fatique, night sweats Eyes: reports: no symptoms reported Ears, Nose, Mouth & Throat: reports: no symptoms reported Cardiovascular: reports: no symptoms reported Respiratory: reports: no symptoms reported Gastrointestinal: reports: no symptoms reported Genitourinary: reports: no symptoms reported Musculoskeletal: reports: see HPI, joint pain (RT HIP, ARM AND WRIST). denies: back pain, muscle weakness, neck pain Integumentary: reports: no symptoms reported Neurological: reports: see HPI, loss of balance. denies: dizziness/vertigo, headache/migraines, syncope Psychiatric: reports: no symptoms reported Endocrine: reports: no symptoms reported Hematologic/Lymphatic: reports: no symptoms reported Allergic/Immunologic: reports: no symptoms reported All Other Systems: Reviewed and Negative Past History - Adult - PAST MEDICAL HISTORY-ADULT Review of Records: reports: Old Records Reviewed, Nursing Assessment Review, Medications Reviewed, Social history reviewed & non-contributory. Major Childhood Illnesses: reports: denies history Cardiovascular: reports: HTN, hyperlipidemia Respiratory: reports: denies history Gastrointestinal: reports: diverticulosis Obstetrical/Gynecological: reports: denies history Genitourinary: reports: denies history Musculoskeletal: reports: chronic pain Neurological: reports: denies history Endocrine/Immune: reports: denies history Other Conditions: reports: denies history - PRIOR SURGERIES/PROCEDURES Surgical/Procedure History: reports: back/neck - IMMUNIZATION STATUS Childhood Immunizations: See Nurse Assessment Flu Vaccine: See Nurse Assessment - FAMILY HISTORY Family History: reviewed, not pertinent - SOCIAL HISTORY Smoking: cigarettes, less than 1 pack/day Provider spent 3-5 mins advising pt. on dangers of tobacco.: Discussed manners to quit use, and f/u contacts for add'l counseling. Substance Use: none/never Physical Exam-Injury Related - Physical Exam-Injury Related Initial Vital Signs Reviewed: Yes General Appearance: alert, mild distress, other (SMELLS OF URINE IN ROOM). negative: cachetic, lethargic, slow to respond, combative Eyes: PERRL/EOMI Head, Ears, Nose, Mouth & Throat: normocephalic/atraumatic Neck: non-tender, full range of motion, supple, normal inspection Respiratory: chest non-tender, lungs clear, normal breath sounds, no respiratory distress, no accessory muscle use Cardiovascular: normal peripheral pulses, regular rate, rhythm Chest/Breast: deferred Abdominal Exam: normal bowel sounds, non tender, soft. negative: distended Back Exam: normal inspection Extremity: normal capillary refill, deformity (RT WRIST), swelling (RT WRIST), tenderness (ON PALP RT HIP AND RT WRIST), other (eccymosis to right wrist). negative: normal range of motion, non-tender, normal inspection, abnormal NV exam, erythema, pulse deficit Integumentary: normal color, warm/dry, other (RT WRIST BRUISING) Neurologic: high climber II-XII nml as tested, grossly normal, no motor/sensory deficits Psych/Mental Status: normal mood/affect, normal thought content, normal thought process, oriented x 3 - Glascow Coma Score Best Eye Response (Joanie): (4) open spontaneously Best Verbal Response (Joanie): (5) oriented Best Motor Response (Joanie): (6) obeys commands Joanie Total: 15 Progress - PLAN OF CARE/RESULTS Progress/Plan/Lab Results: Vital Signs - 8 hr 11/03/19 01:09 11/03/19 01:31 11/03/19 01:42 Temperature 99.3 F Pulse Rate 83 Respiratory Rate 19 Blood Pressure 163/114 194/111 164/114 O2 Sat by Pulse Oximetry 98 98 97 Laboratory Results - last 24 hr 11/03/19 11/03/19 11/03/19 01:30 02:00 02:00 WBC 13.66 H RBC 4.61 Hgb 15.2 Hct 44.3 MCV 96.1 MCH 33.0 H MCHC 34.3 RDW Std Deviation 12.0 Plt Count 175 MPV 10.6 H Immature Gran % (Auto) 0.2 Neut % (Auto) 90.1 H Lymph % (Auto) 4.3 L Lyon % (Auto) 4.8 Eos % (Auto) 0.2 Baso % (Auto) 0.4 Immature Gran # (Auto) 0.03 Neut # (Auto) 12.30 H Lymph # (Auto) 0.59 L Lyon # (Auto) 0.65 H Eos # (Auto) 0.03 Baso # (Auto) 0.06 PT INR PTT (Actin FS) Sodium 131 L Potassium 4.0 Chloride 92 L Carbon Dioxide 27 Anion Gap 12 BUN 16 Creatinine 0.9 Estimated GFR/1.73 m2 60 BUN/Creatinine Ratio 18 Glucose 120 H Calculated Osmolality 265 Calcium 9.3 Total Bilirubin 2.55 H AST 59 H ALT 21 Alkaline Phosphatase 99 Creatine Kinase 1796 H Troponin T High Sens Total Protein 7.2 Albumin 4.2 Globulin 3.0 Albumin/Globulin Ratio 1.4 Urine Source CATH Urine Color YELLOW Urine Turbidity CLEAR Urine pH 7.0 Ur Specific Keller 1.021 Urine Protein 300 A Ur Glucose (Stick) NEGATIVE Ur Ketones (Stick) 80 A Urine Blood MODERATE A Urine Nitrite NEGATIVE Urine Bilirubin NEGATIVE Urobilinogen Dipstick NORMAL Urine Leukocytes NEGATIVE Urine WBC (Auto) <10 Urine RBC (Auto) 20-40 A U Epithel Cells (Auto) <10 Urine Bacteria (Auto) NEGATIVE 11/03/19 11/03/19 02:00 02:00 WBC RBC Hgb Hct MCV MCH MCHC RDW Std Deviation Plt Count MPV Immature Gran % (Auto) Neut % (Auto) Lymph % (Auto) Lyon % (Auto) Eos % (Auto) Baso % (Auto) Immature Gran # (Auto) Neut # (Auto) Lymph # (Auto) Lyon # (Auto) Eos # (Auto) Baso # (Auto) PT 15.4 INR 1.20 PTT (Actin FS) 27.7 Sodium Potassium Chloride Carbon Dioxide Anion Gap BUN Creatinine Estimated GFR/1.73 m2 BUN/Creatinine Ratio Glucose Calculated Osmolality Calcium Total Bilirubin AST ALT Alkaline Phosphatase Creatine Kinase Troponin T High Sens 18 Total Protein Albumin Globulin Albumin/Globulin Ratio Urine Source Urine Color Urine Turbidity Urine pH Ur Specific Keller Urine Protein Ur Glucose (Stick) Ur Ketones (Stick) Urine Blood Urine Nitrite Urine Bilirubin Urobilinogen Dipstick Urine Leukocytes Urine WBC (Auto) Urine RBC (Auto) U Epithel Cells (Auto) Urine Bacteria (Auto) Orders Category Date Time Status Guzman Cath Insertion ORDERED Care 11/03/19 01:39 Active Nursing- Obtain EKG ONCE Care 11/03/19 01:39 Active OCL Splint DIRECTED Care 11/03/19 02:25 Active NPO Diet 11/03/19 04:20 Active CHEST-PORTABLE [RAD] Stat Exams 11/03/19 01:[address] HEAD/C-SPINE W/O CONTRAST [CT] Stat Exams 11/03/19 01:[address] PELVIS W/O CONTRAST [CT] Stat Exams 11/03/19 01:36 Taken ELBOW COMPLETE RIGHT [RAD] Stat Exams 11/03/19 01:36 Taken HAND 2 VIEWS RIGHT [RAD] Stat Exams 11/03/19 01:36 Taken WRIST COMPLETE RIGHT [RAD] Stat Exams 11/03/19 01:36 Taken BLOOD CULTURE [BLDCUL] Stat Lab 11/03/19 02:00 Results CBC WITH ELECTRONIC DIFF [HEME] Stat Lab 11/03/19 02:00 Completed CK TOTAL [CHEM] Stat Lab 11/03/19 02:00 Completed COMPREHENSIVE METABOLIC PANEL [CHEM] Stat Lab 11/03/19 02:00 Completed LACTATE, PLASMA [CHEM] Stat Lab 11/03/19 02:21 Ordered PROTIME WITH INR [COAG] Stat Lab 11/03/19 02:00 Completed PTT [COAG] Stat Lab 11/03/19 02:00 Completed TROPONIN T HIGH SENSITIVITY Stat Lab 11/03/19 02:00 Completed TYPE & SCREEN [BBK] Stat Lab 11/03/19 01:36 Uncollected URINALYSIS W/POSS RFLX CULT [URINALYSIS] Stat Lab 11/03/19 01:30 Completed 0.9% Sodium Chloride Inj [Ns] 1,000 ml Med 11/03/19 04:30 Active IV 150 mls/hr 0.9% Sodium Chloride Inj [Ns] 1,000 ml Med 11/03/19 02:09 Discontinued IV 999 mls/hr Morphine Med 11/03/19 02:09 Discontinued 4 mg IV NOW ONE Ondansetron [Zofran] Med 11/03/19 02:09 Discontinued 4 mg IV NOW ONE EKG [EKG] Stat Ther 11/03/19 01:36 Draft Result Diagrams: 11/03/19 02:00 11/03/19 02:00 - EKG 1 Time of EKG reading by physician:: 02:31 EKG Read and Signed by:: Christina Mclaughlin EKG Interpretation (*Must complete 3 of following elements*): Abnormal Rate: 77 Rhythm: NSR [place]: left QRS: normal OR Interval: normal ST Wave: non-specific ST changes - XRAY 1 XRAY Study: Chest (noraml), Elbow (normal), Wrist (distal radius and ulna fx) - CT/MRI 1 CT Study: Cervical Spine (negative), Head (negative), Pelvis (mildly angulated and impacted transcervical fracture of the right femoral neck) Procedures - SPLINTING Right Upper Extremity Pre-Procedure Neurovascular Exam: Intact Splint Application (Hand-Made): Sugar-Tong Applied By: bread and pastry baker Post Procedure Neurovascular Exam: Intact Departure - Departure Date of Disposition Decision: 11/03/19 Time of Disposition Decision: 03:13 DIAGNOSIS: Rhabdomyolysis, Dehydration, Fall, Closed right hip fracture Right wrist fracture Qualifiers: Encounter type: initial encounter Fracture type: closed Qualified Code(s): S6 2.101A - Fracture of unspecified carpal bone, right wrist, initial encounter for closed fracture Disposition: ADMITTED INPATIENT 09 Certified Medical Emergency: Emergent Condition: Stable - Critical Care Note This patient required my direct & personal management of CC.: No Attestation - Physician/ TRUDI Attestation Patient care was provided by Advanced Practice Provider:: No The physician spent face to face time with patient:: Yes Advanced Practice Provider documentation review:: Supervising physician onsite and consulted in the evaluation and care of this patient. The physician did have a face to face encounter with the patient. This chart was documented by the indicated scribe, (Lisa Mckeon, Nyla) and accurately reflects the services I performed and decisions made by me, Christina Mclaughlin MD, as attested by the provider's signature.
[2019-11-03 02:02] LABS: BILIRUBIN URINE NEGATIVE (NEGATIVE); BLOOD URINE MODERATE (NEGATIVE); COLOR YELLOW; GLUCOSE URINE NEGATIVE (NEGATIVE); KETONE URINE 80 mg/dL (NEGATIVE); LEUKOCYTES URINE NEGATIVE (NEGATIVE); NITRITE URINE NEGATIVE (NEGATIVE); PROTEIN URINE 300 mg/dL (NEGATIVE); SP GRAVITY URINE 1.021; TURBIDITY URINE CLEAR (CLEAR); UROBILINOGEN URINE NORMAL (NORMAL)
[2019-11-03] MEDS ORDERED: MORPHINE IV ONE (02:09)
[2019-11-03] MEDS ORDERED: NS 1,000 ML IV ONE (02:09)
[2019-11-03] MEDS ORDERED: ZOFRAN IV ONE (02:09)
--- NOTE | 2019-11-03 02:38 | EKG Report ---
Test Performed on : 11/03/2019 02:26:13 AM Test Reason : hip deformity Blood Pressure : / mmHG Vent. Rate : 077 BPM Atrial Rate : 077 BPM P-R Int : 138 ms QRS Dur : 070 ms QT Int : 408 ms P-R-T Axes : 081 -31 047 degrees QTc Int : 461 ms Normal sinus rhythm. Left axis deviation Junctional ST depression, probably normal Abnormal ECG When compared with ECG of 10-MAR-2019 08:58, Nonspecific T wave abnormality now evident in Anterior leads Unconfirmed Result
[2019-11-03 02:54] LABS: ALB/GLOB RATIO 1.4; ALBUMIN 4.2 g/dL (3.5-5.0); CALCIUM 9.3 mg/dL (8.8-10.2); CREATININE 0.9 mg/dL (0.5-0.9); TOTAL BILIRUBIN 2.55 mg/dL (0.20-1.00); TOTAL PROTEIN 7.2 g/dL (6.3-8.3)
[2019-11-03 03:01] LABS: BASO# 0.06 X1000 (0.0-0.2); BASO% 0.4 % (0.0-0.8); EOS# 0.03 X1000 (0.0-0.7); EOS% 0.2 % (0.0-10.0); HEMATOCRIT 44.3 % (37.0-47.0); HEMOGLOBIN 15.2 g/dL (12.0-16.0); IMM GRAN# 0.03 X1000 (0.0-0.04); IMM GRAN% 0.2 % (0.0-0.5); LYMPH# 0.59 X1000 (1.2-3.4); LYMPH% 4.3 % (20.5-51.1); MCHC 34.3 g/dL (33-37); MCV 96.1 FL (81-99); MONO# 0.65 X1000 (0.11-0.59); MONO% 4.8 % (1.7-9.3); MPV 10.6 FL (7.4-10.4); NEUT% 90.1 % (42.2-75.2); PLT 175 X1000 (130-400); RBC 4.61 XMIL (4.2-5.4); WBC 13.66 X1000 (4.8-10.8)
[2019-11-03 03:03] LABS: INR 1.2; PROTIME 15.4 Seconds (11.0-16.0); PTT 27.7 Seconds (22.3-41.8)
[2019-11-03] MEDS ORDERED: NS 1,000 ML IV SCH (04:30)
--- NOTE | 2019-11-03 05:36 | Diag Imaging Result Doc PS360 ---
EXAM: CT PELVIS W/O CONTRAST HISTORY: fall, hip pain TECHNIQUE: CT pelvis without contrast COMPARISON: None. FINDINGS: There is a transverse fracture through the right femoral neck. The femoral shaft is rotated and superiorly placed. The femoral head remains in the acetabulum. No other fracture or dislocation to the left hip or pelvis. Mild compression fracture to the L3 vertebra. Distal abdominal aortic aneurysm measuring 3.0 cm with prominent atherosclerosis. No bowel distention. The scattered colonic diverticula. IMPRESSION: 1.Transcervical fracture of the right femoral neck 2.Small aortic aneurysm with severe atherosclerosis 3.Mild compression fracture to the L3 vertebra 4.A preliminary report was given at 3:49 AM This exam was performed using automated exposure control, adjustment of mA or kV according to patient size, and/or use of iterative reconstruction technique. Electronically signed by Evan Ovalle 11/03/2019 5:33 AM
--- NOTE | 2019-11-03 05:49 | Diag Imaging Result Doc PS360 ---
EXAM : CT HEAD/C-SPINE W/O CONTRAST HISTORY: head injury/pain TECHNIQUE: 1. CT head without intravenous contrast 2. CT cervical spine without intravenous contrast COMPARISON: None. FINDINGS: Head: No parenchymal hemorrhage. No epidural or subdural hematoma. No subarachnoid hemorrhage. There are chronic microvascular ischemic changes. No mass identified on this noncontrasted exam. No hydrocephalus. No skull fracture. Cervical spine: There is good alignment to the cervical spine. No precervical soft tissue swelling. No subluxation. Moderate degenerative changes throughout the cervical spine. No fracture. Severe atherosclerosis. IMPRESSION: Head: No hemorrhage. No injury. Cervical spine: No acute fracture. A preliminary report was given at 3:45 PM This exam was performed using automated exposure control, adjustment of mA or kV according to patient size, and/or use of iterative reconstruction technique. Electronically signed by Evan Ovalle 11/03/2019 5:47 AM
[2019-11-03] MEDS: NS 1,000 ML IV SCH ×3 (05:53→16:02)
[2019-11-03] MEDS ORDERED: TYLENOL PO PRN (05:53)
--- NOTE | 2019-11-03 06:56 | HISTORY AND PHYSICAL ---
PRIMARY CARE PROVIDER: Dr. Romano. CHIEF COMPLAINT: Fall. HISTORY OF PRESENT ILLNESS: Ms. Rhoades is an 79-year-old, female with a past medical history of hypertension, hyperlipidemia, COPD, who reports a little over 30 hours ago, she was at home, got up to turn her TV off, turned around, and got tangled up in her feet and fell. She had immediate pain to her right wrist and right hip. She was unable to move until someone found her. She does not report any chest pain, shortness of breath, syncope, or hitting her head when she fell. Workup in the ED revealed a right wrist fracture as well as a hip fracture on the right side, as well as rhabdomyolysis. She has been initiated on IV fluids. Dr. Vincent's recommendation that the patients surgery be on hold while patients rhabdomyolysis and repeat labs are being evaluated. Orthopedics has been consulted, and will continue with further evaluation and treatment. PAST MEDICAL HISTORY: Per HPI. PAST SURGICAL HISTORY: Sinus surgery and bilateral tubal ligation. SOCIAL HISTORY: She does live alone. No alcohol. She smokes about 5 to 12 cigarettes per day, but was a half a pack a day smoker for many years. She is followed by Dr. Robert. FAMILY HISTORY: Father with kidney cancer. Mother with diabetes. ALLERGIES: No known drug allergies. HOME MEDICATIONS: 1. Bupropion XL 150 mg p.o. daily. 2. Coreg 12.5 mg p.o. b.i.d. 3. Nexium 40 mg p.o. every a.m. 4. Lisinopril 30 mg p.o. every a.m. holding while treating rhabdomyolysis 5. Singulair 10 mg p.o. at bedtime. 6. Zocor 40 mg p.o. at bedtime that we will be holding secondary to her rhabdomyolysis. REVIEW OF SYSTEMS: A 12-point review of systems was complete and negative, except for those mentioned in the HPI. There has been no fever, no chills, no cough more than her usual, nothing productive. PHYSICAL EXAMINATION: VITAL SIGNS: Temperature was 99.3 degrees, heart rate 84, respirations 18, blood pressure 163/104, O2 is 96% on room air. GENERAL: Ms. Rhoades is a pleasant, 79-year-old, female, who is currently lying in the bed, getting her right arm wrapped. HEENT: Atraumatic, normocephalic. PERRL. NECK: Supple. Trachea midline. CV: S1, S2 appreciated. No murmurs, gallops, rubs noted. RESPIRATORY: Lung sounds are clear bilaterally. GI: Soft, nontender, nondistended. Positive bowel sounds x4 quadrants. LOWER EXTREMITIES: Did not appreciate any edema. SKIN: Appears to be warm, dry, and intact. IMAGING: CTs and x-rays are all pending over-read. However, she does have a right wrist and hip fracture, the wrist was distal radius and ulnar fracture, the pelvis was a mildly angulated and impacted transcervical fracture on the right femoral neck. LABORATORY DATA: White count of 13. Sodium 131, potassium 4.0, BUN 16, creatinine 0.9, blood glucose was 120. T bilirubin 2.55, AST 59. CK was 1796. ASSESSMENT AND PLAN: 1. Status post mechanical fall, where the patient laid on the floor for about 30 hours. She does have a right wrist and right hip fractures. We will consult Orthopedics, Recommendations to hold surgery off today to treat rhabdomyolysis, continue with pain regimen. 2. Right hip fracture. 3. Right wrist fracture. 4. Rhabdomyolysis. Will continue with aggressive intravenous hydration. Follow labs closely. 5. Chronic obstructive pulmonary disease. Will provide her with as needed DuoNeb. 6. Hypertension. Will continue home medications. 7. Hyperlipidemia. We will hold her statin for now. Further recommendation to follow physician evaluation, laboratory data, and diagnostic data. Dictated by CHRISTIAN Mast for Lissette Vincent MD cc: MD Shawn Latham MD Independent exam and assessment done by me in the ER. Above plan of care was discussed with FILM MASKER and pt. BEV
[2019-11-03] MEDS: MORPHINE IV PRN ×3 (07:05→21:22)
[2019-11-03] MEDS: ZOFRAN IV PRN (07:06)
--- NOTE | 2019-11-03 07:08 | Diag Imaging Result Doc PS360 ---
EXAM: CHEST-PORTABLE 11/03/2019 HISTORY: fall, preop TECHNIQUE: AP portable at 0151 COMMENT: There is blunting of costophrenic angles bilaterally which has not changed since 03/12/2019. The inspiration is actually better. There are calcified nodes in around the right hilum. There is probable COPD. IMPRESSION: Stable chest. Electronically signed by Derrick Sheets 11/03/2019 7:05 AM
--- NOTE | 2019-11-03 07:24 | Diag Imaging Result Doc PS360 ---
EXAM: ELBOW COMPLETE RIGHT 11/03/2019 HISTORY: fall TECHNIQUE: Right elbow three views COMMENT: There is no evidence of fracture or dislocation periosteal reaction or erosion. IMPRESSION: No acute bony abnormality. Electronically signed by Derrick Sheets 11/03/2019 7:21 AM
--- NOTE | 2019-11-03 07:25 | Diag Imaging Result Doc PS360 ---
EXAM: HAND 2 VIEWS RIGHT 11/03/2019 HISTORY: fall TECHNIQUE: Right hand two views COMMENT: There are degenerative changes in the distal interphalangeal joints particularly the fifth. There is a fracture of the distal radius with dorsal angulation and displacement of the distal fragments. There are no previous studies. IMPRESSION: Fracture distal radius. Electronically signed by Derrick Sheets 11/03/2019 7:22 AM
--- NOTE | 2019-11-03 07:25 | Diag Imaging Result Doc PS360 ---
EXAM: WRIST COMPLETE RIGHT 11/03/2019 HISTORY: deformity, fall TECHNIQUE: Right wrist three views COMMENT: There is a comminuted impacted fracture of the distal radius with dorsal angulation and displacement of fragments. IMPRESSION: Fracture distal radius. Electronically signed by Derrick Sheets 11/03/2019 7:23 AM
[2019-11-03 07:45] LABS: CK INDEX 1.1 (0.0-2.5); CK-MB 17.35 ng/mL (0.0-5.0)
[2019-11-03] MEDS: DUONEB (A & A) INH PRN ×4 (08:17→20:14)
[2019-11-03] MEDS: WELLBUTRIN XL PO SCH (09:34)
[2019-11-03] MEDS: PRILOSEC PO SCH (09:34)
[2019-11-03] MEDS: COREG PO SCH ×2 (09:34→21:21)
[2019-11-03] MEDS: SINGULAIR PO SCH (21:21)
[2019-11-04] MEDS: NS 1,000 ML IV SCH ×2 (02:50→12:55)
[2019-11-04] MEDS: MORPHINE IV PRN ×4 (02:56→23:57)
--- NOTE | 2019-11-04 05:49 | ORTHOPAEDICS CONSULTATION ---
DATE: 11/03/2019 CHIEF COMPLAINT: Right hip fracture and right distal radius fracture. HISTORY OF PRESENT ILLNESS: Ms Rhoades is an 79-year-old female with past medical history of hypertension, hyperlipidemia, and COPD that is followed by Dr. Robert. She states that while at home, she twisted and fell and landed her on her right hip and right forearm. She denies any syncopal episode with this, but states that she more got tripped up while turning. She did lie on the floor for approximately 30 hours until someone found her after her fall. She was then transported to the emergency department where a right distal fracture distal radius fracture and right hip fracture were discovered. She also has rhabdomyolysis that is being managed by the hospitalist. Orthopedics was consulted for this hip fracture and right distal radius fracture. PAST MEDICAL HISTORY: Hypertension, hyperlipidemia, COPD. PAST SURGICAL HISTORY: Sinus surgery and bilateral tubal ligation. SOCIAL HISTORY: She lives alone and she denies any alcohol use. She does smoke daily,though this is decreased from what she used to smoke. FAMILY HISTORY: Positive for kidney cancer and diabetes. DRUG ALLERGIES: She denies any known drug allergies HOME MEDICATIONS: 1. Wellbutrin XR 150 mg p.o. daily. 2. Coreg 12.5 mg p.o. b.i.d. 3. Nexium 40 mg p.o. daily. 4. Lisinopril 30 mg p.o. daily. 5. Singular 10 mg p.o. at bedtime. 6. Zocor 40 mg p.o. at bedtime. REVIEW OF SYSTEMS: Twelve-point review of systems was negative except as mentioned in the HPI. She specifically denies any fever, chills, head injury or syncopal episode with her fall. PHYSICAL EXAMINATION: Vital Signs: Her most recent vital signs are heart rate of 68, and she is saturating 95% on room air. Her most recent blood pressure was taken at 3:00 today and was 110/67. General: Ms. Rhoades is lying in bed in no acute distress at this time. She is slightly drowsy since she has just received her dose of pain medication. She is alert and oriented. HEENT: Atraumatic and normocephalic. Extremities: Her right lower extremity is shortened but not externally rotated. She is tender to gentle palpation over her right hip. Her right upper extremity is in a sugar-tong splint at this time and she does have some swelling to her hand, but this is not constrictive. She is able to move her fingers and has sensation intact distally. Her capillary refill is less 2 seconds. IMAGING: She had a wrist x-ray which revealed a comminuted impacted fracture of the distal radius and a pelvis CT which revealed a transcervical fracture of the right femoral neck. She also had a head and cervical CT which revealed no acute intracranial abnormality as well as no cervical fracture. ASSESSMENT: 1. Right distal radius fracture. 2. Right femoral neck fracture. PLAN: Dr. Zarco will be taking Ms. Rhoades to the OR tomorrow as long as she is medically clear for her rhabdomyolysis. He will be performing a hemiarthroplasty of the right hip and open reduction internal fixation of her right radius. She will be n.p.o. after midnight tonight. Her pain and rhabdomyolysis are being managed by the hospitalist team. Dr. Zarco discussed with patient the risks and benefits of surgery which include, but are not limited to risk of anesthesia, blood clots, nerve injury, infection, and . Dr. Zarco will be seeing her tonight prior to her surgery tomorrow. Dictated by CHRISTIAN Villalobos for Juan Zarco MD [facility]
[2019-11-04] MEDS: PRILOSEC PO SCH (06:25)
[2019-11-04] MEDS: COREG PO SCH ×3 (06:29→22:07)
[2019-11-04 06:39] LABS: HEMATOCRIT 36.3 % (37.0-47.0); HEMOGLOBIN 12.3 g/dL (12.0-16.0); MCH 34.1 PG (27-31); MCHC 33.9 g/dL (33-37); MCV 100.6 FL (81-99); MPV 10.6 FL (7.4-10.4); RBC 3.61 XMIL (4.2-5.4); RDW 12.7 % (11.5-14.5); WBC 9.7 X1000 (4.8-10.8)
[2019-11-04 07:02] LABS: CALCIUM 8.5 mg/dL (8.8-10.2); CREATININE 1.1 mg/dL (0.5-0.9); POTASSIUM 3.5 mmol/L (3.5-5.1); TOTAL BILIRUBIN 1.14 mg/dL (0.20-1.00); TOTAL PROTEIN 6.1 g/dL (6.3-8.3)
[2019-11-04] MEDS: DUONEB (A & A) INH PRN (07:59)
--- NOTE | 2019-11-04 08:21 | ORTHOPAEDICS CONSULTATION ---
DATE: 11/03/2019 SERVICE: Orthopedic Surgery. CONSULT FROM: [facility] Emergency Room. REASON FOR CONSULTATION: Right femoral neck fracture, right distal radius fracture. PAST MEDICAL HISTORY: 1. Chronic obstructive pulmonary disease. 2. Asthma. 3. Hypertension. 4. Hyperlipidemia. PAST SURGICAL HISTORY: None. MEDICATIONS: 1. Aspirin 81 mg. 2. Nexium. 3. Lisinopril. 4. Simvastatin. 5. Carvedilol. 6. Montelukast. 7. Bupropion. ALLERGIES: No known drug allergies. SOCIAL HISTORY: Patient lives in [place] in a house alone. She is a community ambulator. She still drives. However, she states she has been limiting her driving recently. She smokes about half-pack cigarettes per day. She is right-hand dominant. She denies any alcohol or drug use. FAMILY HISTORY: Noncontributory. REVIEW OF SYSTEMS: Ten point review of systems was completed and is negative other than what is listed in history of present illness. CHIEF COMPLAINT: Right hip and right wrist pain. HISTORY OF PRESENT ILLNESS: Ms. Rhoades is an 79-year-old lady who presented to [facility] on 11/03/2019 after sustaining a same-level fall at home. She was found down about 30 hours after the fall and brought via ambulance to the ER. X-rays taken in the ER demonstrated a right femoral neck fracture as well as right distal radius fracture. Orthopedic Surgery was thus consulted. Patient was found to be in rhabdomyolysis secondary to her prolonged immobilization after the fall. The patient denies hitting her head or any loss of consciousness. She has no other complaints. She is right-hand dominant. She denies any pain in the hip prior to this fall. PHYSICAL EXAMINATION: General: Ms. Rhoades is an 79-year-old female who appears well nourished and well developed, in no acute distress. She is awake, alert, oriented x3. She is very polite and cooperative during examination. Vital Signs: Temperature 98.4 degrees Fahrenheit, heart rate 81, respiratory rate 16, blood pressure is 147/88. HEENT: Normocephalic and atraumatic. Respiratory: Nonlabored breathing. Cardiovascular: Regular rate and rhythm. Extremities: Examination of right upper extremity shows the sugar-tong splint to be intact in good repair. She has tenderness to palpation in her distal radius. Nontender in her fingers. Nontender in her shoulder, arm and elbow. Motor is intact to AIN, PIN and ulnar nerve distribution. Sensation intact to light touch to median, radial, ulnar, axillary nerves. She has brisk capillary refill x5. Examination of right lower extremity shows skin intact. Pain in the hip with log roll. She has tenderness to palpation anteriorly and laterally over her right hip. Thigh and calf were soft and compressible. She is nontender to palpation over distal the femur, knee, leg, ankle and foot. Motor is intact in EHL, tibialis anterior, gastrocsoleus complex. Sensation intact to light touch L3-S1. Dorsalis pedis pulse palpable and equal bilaterally. LABORATORY DATA: White count 14, hemoglobin 15, hematocrit 44. Creatine kinase upon arrival was 1700 and, after receiving some fluids, dropped down to 1543. IMAGING: A CT scan of the pelvis was reviewed demonstrating a right femoral neck fracture with 100% displacement. Three views of the right wrist were reviewed demonstrating an extra-articular displaced distal radius Colles fracture. ASSESSMENT: An 79-year-old female with right transcervical displaced femoral neck fracture as well as right extra-articular distal radius fracture. PLAN: 1. A long discussion was held with the patient and family regarding diagnosis and treatment options. Given her fracture pattern, she would benefit from right hip hemiarthroplasty as well as open reduction and internal fixation of her distal radius. Risks, benefits, alternative therapies were discussed with the patient and her daughter regarding surgery. Risks of surgery include, but not limited to, risks of bleeding, infection, damage to nerves and vessels around the area, continued pain following surgery, malunion, nonunion, dislocation, and need for revision surgery. There is also risk of anesthesia including blood clot, stroke, heart attack, even . Patient understands these risks. All questions were answered and informed consent was obtained. 2. The patient is NPO for planned surgery on 11/04/2019. 3. Appreciate hospitalist recommendations. 4. Hold chemical deep venous thrombosis prophylaxis until postoperative. 5. Ice and elevate right wrist. Apply ice to right hip as needed for pain. 6. Disposition per primary team. Given patient's upper and lower extremity injury, she would likely benefit from a senior care facility or inpatient rehab upon discharge. We will get social workers working on this.
--- NOTE | 2019-11-04 09:37 | Diag Imaging Result Doc PS360 ---
EXAM: US ABDOMEN-COMPLETE HISTORY: elevated LFTs TECHNIQUE: Abdominal ultrasound COMPARISON: 04/21/2012 FINDINGS: There is mild dilatation to the mid to distal abdominal aorta with a maximum diameter of 3.0 cm. There is atherosclerosis. Normal pancreatic body. Portions of the head and tail are obscured. No focal hepatic abnormality although there appears to be fatty infiltration. Common bile duct measures 5 mm. No gallstones. Normal right kidney. No hydronephrosis. Neither the spleen or left kidney are well seen. IMPRESSION: 1.Small aortic aneurysm 2.Fatty infiltration of the liver Electronically signed by Evan Ovalle 11/04/2019 9:34 AM
[2019-11-04] MEDS: WELLBUTRIN XL PO SCH (10:07)
[2019-11-04] MEDS: NORVASC PO SCH ×2 (10:07→22:07)
[2019-11-04] MEDS ORDERED: PROTONIX IV ONE (10:55)
[2019-11-04] MEDS ORDERED: SODIUM CHLORIDE 0.9% INJ ONE (10:55)
[2019-11-04] MEDS ORDERED: SODIUM CHLORIDE 0.9% 10 ML ONE (11:07)
[2019-11-04] MEDS ORDERED: FENTANYL ONE (13:06)
[2019-11-04] MEDS ORDERED: DIPRIVAN 1% ONE (13:06)
[2019-11-04] MEDS ORDERED: ROBINUL ONE ×2 (13:08→16:20)
[2019-11-04] MEDS ORDERED: QUELICIN (DOSE) ONE (13:08)
[2019-11-04] MEDS ORDERED: XYLOCAINE-MPF 2% ONE (13:08)
[2019-11-04] MEDS ORDERED: CYKLOKAPRON 1,000 MG/NS 1,000 MG/100 ML IVPB ONE (14:31)
[2019-11-04] MEDS ORDERED: DURAMORPH ONE (14:31)
[2019-11-04] MEDS ORDERED: TORADOL ONE (14:31)
[2019-11-04] MEDS ORDERED: EXPAREL 1.3% ONE (14:31)
[2019-11-04] MEDS ORDERED: MARCAINE 0.25% PF ONE ×2 (14:31→17:38)
[2019-11-04] MEDS ORDERED: SODIUM CHLORIDE 0.9% ONE (14:31)
--- NOTE | 2019-11-04 14:37 | ORTHOPAEDICS PROGRESS NOTE ---
DATE: 11/04/2019 SUBJECTIVE: No acute events overnight. Patient has been n.p.o. since midnight for planned surgery this afternoon. He is doing well overall. OBJECTIVE: Hematocrit 36. Afebrile. Vital signs are stable. Examination of the right upper extremity shows sugar-tong cast intact in good repair. Motor is intact AIN, PIN, and ulnar nerve distribution. Sensation intact to light touch to median, radial, ulnar, and axillary nerves. Radial pulse is palpable and equal bilaterally. Examination of right lower extremity shows skin intact. Tender to palpation over the anterior and lateral aspect of the hip. Thigh and calf soft and compressible. Neurovascularly intact right lower extremity. ASSESSMENT: An 79-year-old female with a right distal radius fracture and right femoral neck fracture. PLAN: 1. I will plan for operating room today to undergo right hip hemiarthroplasty as well as open reduction internal fixation of right distal radius fracture. She is to be NPO until surgery. 2. Hold chemical DVT prophylaxis until after the operation. 3. Appreciate hospitalist's recommendations. 4. The patient has some resolving rhabdomyolysis with slight bump in her creatinine today. However, her creatine kinase continues to drop. 5. We will have Physical Therapy to start working with patient postoperatively. I think she will likely benefit from inpatient rehab stay upon discharge.
[2019-11-04] MEDS ORDERED: KEFZOL 1 GM/D5W 2 GM/100 ML IVPB ONE (14:50)
[2019-11-04] MEDS ORDERED: NORCURON ONE (15:30)
[2019-11-04] MEDS ORDERED: EPHEDRINE ONE (16:04)
[2019-11-04] MEDS ORDERED: DECADRON ONE (16:10)
[2019-11-04] MEDS ORDERED: OFIRMEV 1000 MG/ISOTONIC SOLN 1,000 MG/100 ML BOTTLE ONE (16:10)
[2019-11-04] MEDS ORDERED: ZOFRAN ONE (16:17)
[2019-11-04] MEDS ORDERED: NEOSTIGMINE ONE (16:20)
--- NOTE | 2019-11-04 16:44 | PROGRESS NOTE ---
DATE: 11/04/2019 SUBJECTIVE: Patient reports feeling fine. She is waiting for her surgery today. No other complaints noted. OBJECTIVE: Vital Signs: Temperature 98.4 degrees, heart rate 76, respiratory rate 18, blood pressure 147/71, O2 saturation 98% on room air. General Examination: This is a 79-year-old, female lying in bed, in no acute distress. Cardiovascular: S1, S2 heard. No murmurs, gallops, or rubs. Regular rate and rhythm. Respiratory: Clear bilaterally to auscultation. No work of breathing or using accessory muscles. Abdomen: Soft, nontender to palpation. Bowel sounds present. No organomegaly. Extremities: There is a splint placed on the right arm. Neurological: Patient is alert, oriented x3. Moves 4 extremities. LABORATORY DATA: Reviewed. ASSESSMENT: 1. Status post mechanical fall. 2. Right hip fracture. 3. Right wrist fracture. 4. Rhabdomyolysis. 5. Chronic obstructive pulmonary disease. 6. Hypertension. 7. Hyperlipidemia. PLAN: At this point, patient is medically stable. She is awaiting her surgeries for fracture of right hip and right wrist. Regarding the rhabdomyolysis, she is getting better. She is on IV fluids and CK is getting better. We will continue with the same management. There was an elevation of the liver function tests, but we have checked an abdominal ultrasound and everything is okay. We will continue with treatment for hypertension and hyperlipidemia. We will continue to monitor this patient closely and following further recommendations from Orthopedics. cc: Lincoln Nathan MD
[2019-11-04] MEDS ORDERED: MILK OF MAGNESIA PO PRN (18:21)
--- NOTE | 2019-11-04 18:56 | Diag Imaging Result Doc PS360 ---
HIP 1 VIEW RIGHT - 11/04/2019 INDICATION: R FELIPE TECHNIQUE: COMPARISON: None FINDINGS: There is been placement of a right femoral head prosthesis. Alignment is anatomic. No hardware fracture or loosening. IMPRESSION: No complication. Electronically signed by Elijah Hernandez 11/04/2019 6:54 PM
[2019-11-04] MEDS: SINGULAIR PO SCH (22:06)
[2019-11-04] MEDS: COLACE PO SCH (22:07)
[2019-11-05] MEDS: KEFZOL 1 GM/D5W 1 GM/50 ML IVPB IV SCH ×5 (02:00→13:21)
[2019-11-05] MEDS ORDERED: HALL'S COUGH LOZENGE MT PRN (02:18)
[2019-11-05] MEDS: TESSALON PO PRN ×2 (02:37→08:11)
[2019-11-05] MEDS: LOVENOX SUBQ SCH ×2 (05:34→06:05)
[2019-11-05] MEDS: PRILOSEC PO SCH ×2 (05:34→06:06)
[2019-11-05] MEDS: MORPHINE IV PRN (06:05)
[2019-11-05 07:40] LABS: HEMATOCRIT 29.7 % (37.0-47.0); HEMOGLOBIN 9.8 g/dL (12.0-16.0); MCH 33.9 PG (27-31); MCV 102.8 FL (81-99); MPV 11.2 FL (7.4-10.4); RBC 2.89 XMIL (4.2-5.4); RDW 12.4 % (11.5-14.5); WBC 9.23 X1000 (4.8-10.8)
[2019-11-05] MEDS: OXY IR PO PRN ×4 (08:11→22:40)
[2019-11-05 08:13] LABS: AGAP 10; ALB/GLOB RATIO 1.1; ALBUMIN 2.8 g/dL (3.5-5.0); ALKALINE PHOSPHATASE 59 U/L (32-104); BUN 24 mg/dL (8-22); CALCIUM 8.4 mg/dL (8.8-10.2); CHLORIDE 103 mmol/L (98-107); CK TOTAL 624 U/L (24-173); COSMO 276; CREATININE 0.8 mg/dL (0.5-0.9); ESTIMATED GFR > 60; GLUCOSE 130 mg/dL (70-104); GOT 39 U/L (10-30); GPT 20 U/L (10-36); SODIUM 135 mmol/L (136-145); TCO2 22 mmol/L (25-35); TOTAL BILIRUBIN 0.75 mg/dL (0.20-1.00); TOTAL PROTEIN 5.3 g/dL (6.3-8.3)
[2019-11-05] MEDS: WELLBUTRIN XL PO SCH (08:48)
[2019-11-05] MEDS: FERROUS SULFATE PO SCH (08:48)
[2019-11-05] MEDS: COREG PO SCH ×2 (08:48→21:01)
[2019-11-05] MEDS: NORVASC PO SCH ×2 (08:48→21:03)
--- NOTE | 2019-11-05 09:54 | OPERATIVE NOTE ---
PROCEDURE DATE: 11/04/2019 PREOPERATIVE DIAGNOSES: 1. Right displaced femoral neck fracture. 2. Right extra-articular distal radius fracture. POSTOPERATIVE DIAGNOSIS: 1. Right displaced femoral neck fracture. 2. Right extra-articular distal radius fracture. PROCEDURE: 1. Right hip hemiarthroplasty. 2. Open reduction internal fixation right extra-articular distal radius fracture. SURGEON: Juan Zarco MD. ASSISTANTS: 1. CHRISTIAN Yung. 2. CHRISTIAN Aggarwal. Both of which were needed for retraction, reduction and placement of implants. 3. Rosendo Guillory RN. ANESTHESIA: General endotracheal anesthesia. COMPLICATIONS: None. SPECIMENS: None. DRAINS: None. BLOOD LOSS: 110 mL. IMPLANTS: 1. Alhaji bipolar system with a size 5 Alhaji Avenir GARCIAS- coated press-fit stem, size 45 mm [place] chromium shell with a 28 mm +0 standard head. 2. [employer] DVR distal radius Crosslock narrow right-sided distal radius plate with locking screws distally and cortical and locking screws proximally. INDICATIONS FOR PROCEDURE: Ms. Rhoades is an 79-year-old female who sustained a same-level fall on 11/03/2019. X-rays taken and demonstrated the above injuries. Given these injuries, decision was made to proceed with a partial hip replacement on the right side as well as ORIF of her right distal radius fracture. Risks, benefits, and alternative therapies were discussed with the patient and family regarding surgery. Risks of surgery include, but are not limited to risks of bleeding, infection, damage to nerves and vessels around the area, malunion, nonunion, hip dislocation, and need for revision surgery. There is also risk of anesthesia including blood clot, stroke, heart attack, even . The patient understands these risks. All questions were answered. Informed consent was obtained. PROCEDURE IN DETAIL: Ms. Rhoades was identified by wristband and greeted in preoperative holding area on 11/04/2019. Her right upper and lower extremities were marked in indelible ink per [facility] protocol. Following this, the patient was transferred back to the operating room for surgery. Upon entering the OR, general endotracheal anesthesia was induced on her bed. She was then transferred in supine position on to a Traphill table. All bony prominences were well padded. Feet were placed in the padded boot holders. At this time, the right lower extremity was first prepped and draped in routine sterile fashion. Formal time-out was performed confirming correct patient, procedure, operative site, operative side, administration of preoperative antibiotics. Everyone was in agreement. Patient received 2 g Ancef prior to incision. A 10 blade knife was used to make a standard direct anterior approach to the hip through a 12 cm incision. Incision was made just distal and lateral to the ASIS. Knife was used to dissect through skin. Bovie cautery was then used to obtain hemostasis and dissect down to tensor fascia. Careful hemostasis was obtained. A knife was then used to make a luz marina in the tensor fascia and the fascial incision was then expanded the length of the skin incision using curved Zelaya scissors. At this time, tensor fascia muscle belly was teased off the anterior aspect of the fascia until we fell on the interval between tensor fascia and sartorius. Blunt Cobra was placed around the saddle of the femoral neck and greater trochanter. A hemostat was then used to spread through the interval between rectus and vastus lateralis to locate the ascending circumflex vessels which were identified and coagulated carefully using Bovie cautery. Once this was done, Bovie was then used to dissect through interval in between rectus and vastus. Once this was done, a second blunt Cobra was placed along the inferior femoral neck. Bovie was then used to remove pericapsular fat and rectus from the anterior capsule. A 90 degree Hohmann was then placed underneath the rectus over the anterior acetabular lip. At this time, Ruff elevator was used to clean off the capsule. We had excellent visualization of our hip capsule. Bovie was then used to make an inverted T capsulotomy taking care not to get into the labrum. A #1 Vicryl tagging sutures were then placed at each limb of the capsule and it was reflected both superiorly as well as inferiorly around the femoral neck. Blunt Cobra retractors were repositioned inside the capsule. We now had excellent visualization of the femoral neck fracture site. A sagittal saw was used to make our neck cut in routine fashion. Corkscrew was then used to remove the femoral head. Femoral head was measured on the back table and found to be 44 mm. We then trialed with a 44 and subsequent 45 mm ball and found to have good suction fit with a 45 mm trial. At this time, a Bovie was used to start our femoral release taking capsule off the medial and posterior aspect of the greater trochanter. Once the capsule was released, 2 prong retractor was placed over the greater trochanter onto the bare area. A bone hook was then placed in the canal and the leg was then extended and adducted allowing us to pull the femur up in the wound. We had excellent exposure of the femur. At this time, a cookie cutter was used to enter the canal followed by a reamer and canal finder. We then began with sequential broaching starting with a size 1 [address] our way up to a size 5. Patient had excellent press fit with the size 5 stem. Now the size 5 trial was then left in place and a 45 mm trial head was placed. The hip was then carefully reduced. At this time, fluoroscopy was brought in confirming good press-fit and position of our stem as well as leg lengths. The hip was taken through range of motion and found to be stable in all planes without any sign of impingement. Leg lengths were equal. We thus decided to open these final implants. At this time, the hip was then carefully dislocated. Trial components were removed. The wound was copiously irrigated with normal saline. We then impacted our size 5 GARCIAS-coated Avenir stem which had excellent fit. Medial calcar was inspected and found to be intact without any signs of fracture. Our 45 mm shell and head were then assembled and impacted into position. The hip was then reduced. It was again taken through range of motion. Final fluoroscopic x-rays were taken demonstrating good reduction of the hip with excellent fit of the stem and no signs of fracture. At this time, 0.35% Betadine solution was poured in the wound and allowed to sit for 3 minutes. The wound was then copiously irrigated with 3 L normal saline. Our deep Exparel concoction was then injected along the anterior and posterior capsule, indirect head of rectus, vastus lateralis, tensor fascia and sartorius. Our superficial skin injection was then injected into the subcutaneous tissue. Following this, we proceeded with closure of our capsule using #1 Vicryl suture. Our tensor fascia was then closed using a running 0 Vicryl suture, 2-0 Vicryl sutures were used for subcutaneous tissue closure followed by a 4-0 Monocryl for skin closure. The skin was then closed with Dermabond. The wound was then dressed with a [place] dressing. At this time, all drapes were removed and we turned our attention to the wrist. The table was turned. The arm table was placed on the bed and the wrist and right upper extremity was prepped and draped in routine sterile fashion. Again, time-out was performed confirming correct patient and operative site. Esmarch was used to exsanguinate the right upper extremity and tourniquet was elevated to 250 mmHg. Total tourniquet time was 55 minutes. A 15 blade knife was used to make a longitudinal incision for a volar Dexter FCR approach. Knife was used to dissect through skin and subcutaneous fat down on to FCR tendon. Incision measured about 8 cm. The FCR tendon sheath was incised and tendon was retracted ulnarly. The dorsal tendon sheath was then incised longitudinally. At this time, Weitlaner retractors were placed retracting FPL and FCR ulnarly. We had good visualization of the pronator quadratus at this time. A knife was used to take the pronator quadratus off of the radial side of the distal radius. A Tran elevator was then used to elevate it. We then had excellent visualization of her fracture site. Once this was done, the fracture and bone was copiously irrigated. Reduction maneuver was performed. Fluoroscopy was brought in confirming anatomic reduction of fracture. We then placed a Biomet Crosslock plate and localized the positioning of the plate under fluoroscopy. The K-wires were used then pin it in position. We were satisfied with position of the plate and reduction and thus proceeded with filling the distal holes first. A cortical screw was first placed sucking the plate down to bone and further assisting with reduction. We then proceeded with placement of locking screws distally. When we were done with this, our cortical screw was exchanged for a locking screw. Two cortical screws ,were then placed in the shaft followed by 2 additional locking screws in the shaft. Once all screws were placed, the wrist was taken through range of motion and found to have good range of motion with no crepitus over the flexor or extensor tendons. Final AP, lateral, and dorsal tangential views of the wrist were obtained confirming anatomic reduction of the fracture with cheondoism of radial height, inclination, and volar tilt. At this time, the wound was copiously irrigated with normal saline. An 0 Vicryl suture was used to close pronator quadratus over the plate. Once this was done, a 15 mL of 0.5% Marcaine plain were then injected around the fracture site and subcutaneous tissue for local analgesia. A 2-0 Vicryl suture was then used for closure of our subcutaneous tissue followed by 4-0 nylons in horizontal mattress fashion for skin closure. The wound was then dressed with Xeroform, 4x4s, sterile Webril and a volar slab splint. Tourniquet was then deflated. Again, total tourniquet time was 55 minutes. The patient had brisk capillary refill once the tourniquet was deflated. At this time, patient was then extubated, transferred over to her hospital stretcher and taken to recovery room in stable condition. There were no acute complications during the procedure. All sponge and sharp counts were correct at conclusion of procedure.
[2019-11-05] MEDS: DUONEB (A & A) INH PRN (11:41)
[2019-11-05] MEDS: NS 1,000 ML IV SCH ×4 (13:20→22:51)
--- NOTE | 2019-11-05 15:08 | PROGRESS NOTE ---
DATE: 11/05/2019 INTERVAL HISTORY: Patient pain well controlled status post surgery for right hip and wrist fractures done yesterday. Has done very well with liquids and endorses a good appetite and the desire for more substantial food. Still pretty weak, was able to get from bed to a bedside chair with minimal assistance thus far. No acute events overnight. No new complaints. REVIEW OF SYSTEMS: Twelve point review of systems negative except as per interval history. LABORATORY DATA: WBC 9.2, hemoglobin 9.8, hematocrit 29.7, platelets 113,000. Sodium 135, potassium 4, bicarb 22, BUN 24, creatinine 0.8, glucose 130. VITAL SIGNS: T-max 98.4 degrees, pulse 75, respirations 22, blood pressure 128/66, O2 saturation 98% on room air. PHYSICAL EXAMINATION: General: No acute distress. Vital signs: As above. HEENT: Normocephalic, atraumatic. Moist mucous membranes. No cervical adenopathy. Cardiovascular: Regular rate and rhythm. No murmurs noted. Pulmonary: Clear to auscultation bilaterally. No wheezing, rales, or rhonchi. Abdomen: Soft, nontender, nondistended. Bowel sounds positive. Extremities: Peripheral pulses intact. No clubbing or cyanosis. Right forearm bandaged. Neurologic: Cranial nerves grossly intact. No focal deficits identified. Mild global weakness. Psychiatric: Normal mood and affect. Awake, alert, cooperative. ASSESSMENT AND PLAN: 1. Fall with right hip and distal radius fractures which were closed. Radius fracture was displaced. Status post surgery by Dr. Zarco yesterday. Doing well postoperatively. Likely going to rehab on Thursday. The patient reportedly elected to go to rehab initially, but at the time of my exam, the patient had been talking with her family and was amenable to that. 2. Mild rhabdomyolysis. CKs trended down nicely. Continue some gentle fluids one more day but can likely discontinue tomorrow. 3. Chronic obstructive pulmonary disease. No sign of exacerbation at this time. Monitor. 4. Hypertension. Good control currently on home Norvasc. Monitor. 5. Hyperlipidemia. Holding home Zocor given elevated CK, but will plan on restarting at discharge. 6. Seasonal allergies. Continue home singular. 7. Hyponatremia, mild, asymptomatic. Improved. Monitor labs. 8. Anemia. Patient with a bit of a drop over the last couple days. Suspect she was dehydrated on admission and some of that is likely dilutional. We will continue to monitor blood counts. 9. Disposition. Likely to rehab on Thursday.
--- NOTE | 2019-11-05 19:48 | ORTHOPAEDICS PROGRESS NOTE ---
DATE: 11/05/2019 SUBJECTIVE: Ms. Rhoades is postop day 1 from a right hip hemiarthroplasty and ORIF wrist. Overall, she is feeling okay this morning. She has not really gotten out of bed yet. OBJECTIVE: Right upper extremity: She is moving the arm around really well and moving all of her fingers. All her hand intrinsics are intact. She has good sensation to light touch to all the fingers. Right hip: Dressing is clean, dry, and intact. She is neurovascularly intact in the right lower extremity as well. Thigh and thigh and calf are both soft. ASSESSMENT: 1. Status post right hip hemiarthroplasty. 2. Status post open reduction and internal fixation, right distal radius fracture. PLAN: I think Ms. Rhoades is doing well. She is going to work with therapy today. She will more than likely be here through the weekend, and we will look to get her discharged to rehab early this next week. cc: Juan Estevez MD
[2019-11-05] MEDS: SINGULAIR PO SCH (21:01)
[2019-11-05] MEDS: COLACE PO SCH (21:01)
[2019-11-05] MEDS: ZOFRAN IV PRN (22:52)
[2019-11-06 07:01] LABS: HEMATOCRIT 29.7 % (37.0-47.0); HEMOGLOBIN 9.9 g/dL (12.0-16.0); MCH 34.3 PG (27-31); MCHC 33.3 g/dL (33-37); MCV 102.8 FL (81-99); MPV 11.2 FL (7.4-10.4); RBC 2.89 XMIL (4.2-5.4); RDW 12.6 % (11.5-14.5); WBC 10.01 X1000 (4.8-10.8)
[2019-11-06] MEDS: PRILOSEC PO SCH (07:03)
[2019-11-06] MEDS: LOVENOX SUBQ SCH (07:03)
[2019-11-06 07:21] LABS: AGAP 10; ALBUMIN 2.8 g/dL (3.5-5.0); ALKALINE PHOSPHATASE 60 U/L (32-104); BUN 22 mg/dL (8-22); CALCIUM 8.4 mg/dL (8.8-10.2); CHLORIDE 108 mmol/L (98-107); COSMO 280; CREATININE 0.8 mg/dL (0.5-0.9); ESTIMATED GFR > 60; GLUCOSE 114 mg/dL (70-104); GOT 41 U/L (10-30); GPT 17 U/L (10-36); POTASSIUM 3.9 mmol/L (3.5-5.1); SODIUM 138 mmol/L (136-145); TCO2 20 mmol/L (25-35); TOTAL BILIRUBIN 0.83 mg/dL (0.20-1.00); TOTAL PROTEIN 5.7 g/dL (6.3-8.3)
--- NOTE | 2019-11-06 08:49 | ORTHOPAEDICS PROGRESS NOTE ---
DATE: 11/06/2019 SUBJECTIVE: Mr. Rhoades was lying in bed, resting really well this morning. Not really complaining of much pain. She was up with physical therapy yesterday. Did not do great moving around. OBJECTIVE: On right upper extremity examination, splint is clean, dry, and intact. Not a lot of swelling to the fingers. On right lower extremity examination, dressing remains clean, dry, and intact there. She remains neurovascularly intact to the right lower extremity. ASSESSMENT: Status post right hip hemiarthroplasty and open reduction and internal fixation of distal radius. PLAN: Ms. Rhoades will continue to work with therapy. We will more than likely get a rehab for her. patient services coordinator will be involved with that. She is to weight-bear as tolerated to the right lower extremity and she can use the right upper extremity but no heavy lifting. cc: Juan Estevez MD
[2019-11-06] MEDS: WELLBUTRIN XL PO SCH (09:44)
[2019-11-06] MEDS: NORVASC PO SCH ×2 (09:44→22:03)
[2019-11-06] MEDS: FERROUS SULFATE PO SCH (09:44)
[2019-11-06] MEDS: COREG PO SCH ×2 (09:44→22:03)
[2019-11-06] MEDS: MORPHINE IV PRN ×4 (10:14→22:04)
[2019-11-06] MEDS: ZOFRAN IV PRN (10:14)
[2019-11-06] MEDS: NS 1,000 ML IV SCH (11:19)
--- NOTE | 2019-11-06 13:58 | Diag Imaging Result Doc PS360 ---
CHEST-PORTABLE - 11/06/2019 INDICATION: cough COMPARISON: 11/03/2019 FINDINGS: Stable hyperexpanded lungs compatible with COPD. Stable mild cardiomegaly. Stable blunting of the costophrenic angles bilaterally. No new infiltrates. IMPRESSION: No change from prior exams. Electronically signed by Elijah Hernandez 11/06/2019 1:56 PM
[2019-11-06] MEDS: TESSALON PO PRN ×2 (14:34→22:03)
[2019-11-06] MEDS ORDERED: NEXIUM PO SCH (15:45)
[2019-11-06] MEDS: NEXIUM PO SCH (15:55)
[2019-11-06] MEDS: DUONEB (A & A) INH PRN (16:03)
--- NOTE | 2019-11-06 17:14 | PROGRESS NOTE ---
DATE: 11/06/2019 INTERVAL HISTORY: No acute events overnight. Patient is still pretty weak. struggling with physical therapy. Patient's only complaint is some indigestion. She states she would like to go back to her home Nexium. REVIEW OF SYSTEMS: Twelve point review of systems negative except as per interval history. LABS: WBC 10.0, hemoglobin 9.9, hematocrit 29.7, platelets 127,000. Sodium 138, potassium 3.9, bicarb 20, BUN 22, creatinine 0.8, glucose 114. VITAL SIGNS: T-max 98.6 degrees, pulse 84, respirations 16, blood pressure 133/72, O2 saturation 100% on room air. PHYSICAL EXAMINATION: General: No acute distress. Vital signs: As above. HEENT: Normocephalic, atraumatic. Moist mucous membranes. No cervical adenopathy. Cardiovascular: Regular rate and rhythm. No murmurs noted. Pulmonary: Clear to auscultation bilaterally. No wheezing, rales, or rhonchi. Abdomen: Soft, nontender, nondistended. Bowel sounds positive. Extremities: Peripheral pulses intact. No clubbing or cyanosis. Right forearm remains heavily bandaged. Some bruising noted in the fingers. Neurologic: Cranial nerves grossly intact. No focal deficits identified. Mild global weakness, stable. Psychiatric: Normal mood and affect. Awake, alert, cooperative. ASSESSMENT AND PLAN: 1. Fall with right hip and distal radius fracture. Status post surgery by Dr. Zarco 11/04. Doing well postop, but still fairly weak. Likely going to rehab once placement is obtained, hopefully tomorrow. 2. Mild rhabdomyolysis. CK has trended down. Patient eating and drinking well. We will discontinue IV fluids at this time. 3. Chronic obstructive pulmonary disease. No sign of exacerbation at this time. Monitor. 4. Hypertension. Reasonable control on home Norvasc. Monitor. 5. Hyperlipidemia. We held Zocor in this hospitalization given elevated CK, but we will plan on restarting that at discharge. 6. Seasonal allergies. Continue Singulair. 7. Hyponatremia, mild. Asymptomatic and now resolved. 8. Anemia. A little bit of a drop postop but stable since then. Monitor but likely no need for acute intervention. 9. Gastroesophageal reflux disease. Will change patient back to her home Nexium. 10. Disposition. Hopefully to rehab in the next 24 hours if arrangements can be made. BEV
[2019-11-06] MEDS: COLACE PO SCH (22:03)
[2019-11-06] MEDS: SINGULAIR PO SCH (22:03)
[2019-11-07] MEDS: MORPHINE IV PRN (01:42)
[2019-11-07 07:00] LABS: HEMATOCRIT 26.8 % (37.0-47.0); HEMOGLOBIN 8.7 g/dL (12.0-16.0); MCH 33.1 PG (27-31); MCHC 32.5 g/dL (33-37); MCV 101.9 FL (81-99); MPV 11.1 FL (7.4-10.4); RBC 2.63 XMIL (4.2-5.4); RDW 12.7 % (11.5-14.5); WBC 8.62 X1000 (4.8-10.8)
[2019-11-07 07:26] LABS: AGAP 9; ALBUMIN 2.4 g/dL (3.5-5.0); ALKALINE PHOSPHATASE 93 U/L (32-104); BUN 22 mg/dL (8-22); CALCIUM 8.5 mg/dL (8.8-10.2); CHLORIDE 107 mmol/L (98-107); COSMO 275; CREATININE 0.7 mg/dL (0.5-0.9); ESTIMATED GFR > 60; GLUCOSE 99 mg/dL (70-104); GOT 31 U/L (10-30); GPT 15 U/L (10-36); POTASSIUM 3.3 mmol/L (3.5-5.1); SODIUM 136 mmol/L (136-145); TCO2 20 mmol/L (25-35); TOTAL PROTEIN 4.9 g/dL (6.3-8.3)
[2019-11-07] MEDS: LOVENOX SUBQ SCH (07:31)
[2019-11-07] MEDS: NEXIUM PO SCH (07:31)
[2019-11-07] MEDS: COREG PO SCH (09:10)
[2019-11-07] MEDS: NORVASC PO SCH (09:10)
[2019-11-07] MEDS: OXY IR PO PRN ×2 (09:10→13:05)
[2019-11-07] MEDS: FERROUS SULFATE PO SCH (09:10)
[2019-11-07] MEDS: WELLBUTRIN XL PO SCH (09:10)
--- NOTE | 2019-11-07 11:06 | DISCHARGE SUMMARY ---
ADMISSION DATE: 11/03/2019 DISCHARGE DATE: 11/07/2019 PROBLEM LIST: 1. Hip fracture on the right, status post open reduction and internal fixation. 2. Distal radial fracture, status post splint. 3. Rhabdomyolysis. 4. Chronic obstructive pulmonary disease. 5. Hypertension. 6. Dyslipidemia. 7. Hyponatremia. 8. Anemia associated with acute blood loss. 9. Gastroesophageal reflux disease. ADMISSION DIAGNOSES: 1. Mechanical fall. 2. Right hip fracture. 3. Right wrist fracture. 4. Rhabdomyolysis. CONSULTATIONS: Dr. Zarco, orthopedics. PROCEDURES: Right hip hemiarthroplasty, and open reduction and internal fixation of a right extra- articular distal radius fracture, Dr. Zarco. That was 11/04/2019. HISTORY OF PRESENT ILLNESS: This is an 79-year-old female with a history of hypertension and dyslipidemia, who fell about 30 hours ago, 30 hours prior to admission. There was no syncope. She got tangled up in her feet and fell on her right side. She was unable to move. She had a displaced rib fracture and rhabdomyolysis with a CPK of 1796. She was admitted for treatment. Dr. Zarco was consulted. She was given hydration because of her rhabdomyolysis. She had an abdominal ultrasound that showed small aortic aneurysm, fatty infiltration of the liver. CK started trending downward. Then the plan was a right hemiarthroplasty, and internal fixation of distal radial fracture. In any case, she underwent both those procedures and stabilized. Her CK went down to 624. Her creatinine was stable at 0.7 on the , which was the day of discharge. Potassium 3.3. In any case, she was felt to be stable for discharge on the . DISCHARGE MEDICATIONS: Singulair 10 daily, Zocor 40 daily which had been held, bupropion 150 daily, Coreg 12.5 b.i.d., lisinopril 30 daily, Nexium 40 daily, Lovenox 40 subcutaneously for 30 days or until ambulatory, Norvasc 5 b.i.d., OxyIR 5 q.4 p.r.n. pain, and Tessalon Perles 100 t.i.d. p.r.n. cough. DISCHARGE CONDITION: Stable. cc: MD Merari Arroyo MD
[2019-11-07 12:31] VITALS: BP 124/75
== END 2019-11-07 14:28 | DRG 956 ==
LOC: ED 00:57 → SUATTDRO 05:39 → EDIPHOLD 05:39 → 4N 07:02
PROVIDERS: ATTEND Internal Medicine